=== PATIENT | female | born 1975 | race African-American/Black ===

== ENCOUNTER 2017-06-30 19:18 | Emergency (ER) | payer BC ==
--- NOTE | 2017-06-30 20:01 | ER Document Report ---
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 No antiplatelet medications, no anticoagulants. Yesterday took a 13 hour trip by car from [place] back up to here. Did not stop and get out very often to walk. Did not drink much fluids to avoid having to stop very often. Last night began having pain behind the left knee. Now feels left leg is swelling and tight and there is pain behind the knee and going up the medial thigh. Physical exam confirmed her complaints. The calf itself is not really tender. I have been told that venous Doppler techs are not here at this time. Will check d-dimer and if it is elevated that should be enough evidence to start treatment. I have greeted and performed a rapid initial assessment of this patient. A comprehensive ED assessment and evaluation of the patient, analysis of test results and completion of the medical decision making process will be conducted by additional ED providers. TRAVEL OUTSIDE OF THE [place] IN LAST 30 DAYS: No - Related Data Allergies/Adverse Reactions: No Known Allergies Allergy (Verified 06/26/16 13:36) Past Medical History - Social History Chew tobacco use (# tins/day): No Frequency of alcohol use: None Drug Abuse: None - Past Medical History Cardiac Medical History: Reports: Hx DVT - 2004 Renal/ Medical History: Denies: Hx Peritoneal Dialysis Past Surgical History: Reports: Hx Hysterectomy - Immunizations Hx Diphtheria, Pertussis, Tetanus Vaccination: Yes Physical Exam - Vital signs Vitals: Temp Pulse BP Pulse Ox 98.3 F 108 H 157/98 H 97 06/30/17 19:22 06/30/17 19:22 06/30/17 19:22 06/30/17 19:22 Course - Vital Signs Vital signs: Temp Pulse Resp BP Pulse Ox 98.3 F 108 H 18 157/98 H 97 06/30/17 19:22 06/30/17 19:22 06/30/17 19:23 06/30/17 19:22 06/30/17 19:22
[2017-06-30 20:32] LABS: ABSOLUTE EOSINOPHILS # (AUTO) 0.2 10^3/uL (0.0-0.6); ABSOLUTE LYMPHOCYTES (AUTO) 2.4 10^3/uL (0.5-4.7); ABSOLUTE MONOCYTES (AUTO) 0.5 10^3/uL (0.1-1.4); ABSOLUTE NEUT (AUTO) 4.8 10^3/uL (1.7-8.2); BASOPHILS % (AUTO) 0.3 % (0-2); EOSINOPHILS % (AUTO) 2.3 % (0-6); HEMATOCRIT 39.4 % (36.0-47.0); HEMOGLOBIN 13.1 g/dL (12.0-15.5); LYMPHOCYTES % (AUTO) 30.3 % (13-45); MEAN CORPUSCULAR HEMOGLOBIN 29.4 pg (27.0-33.4); MEAN CORPUSCULAR HGB CONC 33.2 g/dL (32.0-36.0); MEAN CORPUSCULAR VOLUME 89 fl (80-97); MONOCYTES % (AUTO) 6.8 % (3-13); PLATELET COUNT 288 10^3/uL (150-450); RED BLOOD COUNT 4.44 10^6/uL (3.72-5.28); RED CELL DISTRIBUTION WIDTH 14.6 % (11.5-14.0); SEGMENTED NEUTROPHILS % (AUTO) 60.3 % (42-78); TOTAL CELLS COUNTED % (AUTO) 100 %
[2017-06-30 20:37] LABS: INTERNATIONAL RATION (INR) 0.83; PROTHROMBIN TIME 12.1 SEC (11.4-15.4)
[2017-06-30 20:39] LABS: D-DIMER 0.61 ug/mL (0.00-0.50)
[2017-06-30 20:41] LABS: ALANINE AMINOTRANSFERASE 27 U/L (9-52); ALBUMIN 4.6 g/dL (3.5-5.0); ALKALINE PHOSPHATASE 105 U/L (38-126); ANION GAP 10 (5-19); ASPARTATE AMINO TRANSFERASE 24 U/L (14-36); BILIRUBIN,DIRECT 0.2 mg/dL (0.0-0.4); BILIRUBIN,TOTAL 0.3 mg/dL (0.2-1.3); BLOOD UREA NITROGEN 16 mg/dL (7-20); CALCIUM 10.3 mg/dL (8.4-10.2); CARBON DIOXIDE 26 mmol/L (22-30); CHLORIDE 105 mmol/L (98-107); GLUCOSE 74 mg/dL (75-110); POTASSIUM 4.1 mmol/L (3.6-5.0); SODIUM 141.2 mmol/L (137-145); TOTAL PROTEIN 7.9 g/dL (6.3-8.2)
--- NOTE | 2017-06-30 20:58 | RADIOLOGY REPORT (SQ) ---
EXAM DESCRIPTION: KNEE LEFT 3 VIEWS COMPLETED DATE/TIME: 06/30/2017 8:41 pm REASON FOR STUDY: knee pain COMPARISON: None. NUMBER OF VIEWS: Three views, AP as well as lateral and tangential patellofemoral. LIMITATIONS: None. FINDINGS: No subluxation or dislocation. Oberon view suggests subtle crack along the medial facet (versus artifact. No large joint effusion suggested. OTHER: No other significant finding. IMPRESSION: Potential subtle nondisplaced patellar fracture, depending on clinical presentation. Ev bright the patient have trauma recently? TECHNICAL DOCUMENTATION: JOB ID: [id number]
[2017-06-30] MEDS ORDERED: IBUPROFEN 600 MG TABLET PO ONE (22:13)
--- NOTE | 2017-06-30 22:18 | ER Document Report ---
ED General - General Chief Complaint: Knee Pain Stated Complaint: LEFT KNEE PAIN Time Seen by Provider: 06/30/17 19:52 Notes: Patient is a 41-year-old female with a past medical history of a DVT in the remote past who presents with 24 hours of left knee pain. She describes the pain in her knee as a gradual onset of a dull, constant, throbbing pain. Moving the knee or walking worsens the pain. She has not tried anything for relief of the pain. She denies a history of similar symptoms in the past. She denies any trauma to the area. She denies any additional symptoms including shortness of breath, fever, rash, or leg swelling. She has not seen her primary doctor regarding today's concerns. TRAVEL OUTSIDE OF THE [place] IN LAST 30 DAYS: No - Related Data Allergies/Adverse Reactions: No Known Allergies Allergy (Verified 06/26/16 13:36) Home Medications: Current Home Medications Acetaminophen/Dp-Hydramine [Goody's Pm Powder Packet] 1 pkt PO DAILY PRN [History] Aspirin/Acetaminophen/Caffeine [Excedrin Migraine Caplet] 1 each PO DAILY PRN [History] Cyclobenzaprine HCl [Flexeril 10 mg Tablet] 10 mg PO TIDP PRN 06/30/17 [History] Past Medical History - General Information source: Patient - Social History Smoking Status: Never Smoker Chew tobacco use (# tins/day): No Frequency of alcohol use: None Drug Abuse: None Lives with: Spouse/Significant other Family History: Reviewed & Not Pertinent, Other - Breast [place]--aunt, cousin Patient has suicidal ideation: No Patient has homicidal ideation: No - Past Medical History Cardiac Medical History: Reports: Hx DVT - 2004 Renal/ Medical History: Denies: Hx Peritoneal Dialysis Past Surgical History: Reports: Hx Hysterectomy - Immunizations Hx Diphtheria, Pertussis, Tetanus Vaccination: Yes Review of Systems - Review of Systems Notes: Constitutional: Negative for fever. HENT: Negative for sore throat. Eyes: Negative for visual changes. Cardiovascular: Negative for chest pain. Respiratory: Negative for shortness of breath. Gastrointestinal: Negative for abdominal pain, vomiting or diarrhea. Genitourinary: Negative for dysuria. Musculoskeletal: Positive for left knee pain Skin: Negative for rash. Neurological: Negative for headaches, weakness or numbness. 10 point ROS negative except as marked above and in HPI. Physical Exam - Vital signs Vitals: Temp Pulse BP Pulse Ox 98.3 F 108 H 157/98 H 97 06/30/17 19:22 06/30/17 19:22 06/30/17 19:22 06/30/17 19:22 Interpretation: Normal Notes: PHYSICAL EXAMINATION: GENERAL: Well-appearing, well-nourished and in no acute distress. HEAD: Atraumatic, normocephalic. EYES: Pupils equal round and reactive to light, extraocular movements intact, sclera anicteric, conjunctiva are normal. ENT: nares patent, oropharynx clear without exudates. Moist mucous membranes. NECK: Normal range of motion, supple without lymphadenopathy LUNGS: Breath sounds clear to auscultation bilaterally and equal. No wheezes rales or rhonchi. HEART: Regular rate and rhythm without murmurs ABDOMEN: Soft, nontender, normoactive bowel sounds. No guarding, no rebound. No masses appreciated. EXTREMITIES: Normal range of motion, mild swelling to the left knee. Point tenderness on palpation of the patella and the popliteal fossa. Otherwise no extremity findings NEUROLOGICAL: No focal neurological deficits. Moves all extremities spontaneously and on command. PSYCH: Normal mood, normal affect. SKIN: Warm, Dry, normal turgor, no rashes or lesions noted. Course - Re-evaluation Re-evalutation: 06/30/17 22:15 Patient presents with concerns of left knee pain and swelling for the past 24 hours. Initial concern was for possible DVT as she does have a history of past and had pain in the popliteal fossa. However a venous Doppler study does not show any evidence of an acute DVT or superficial clot. However a left knee x- ray does show very small patellar fracture. Although patient initially denied any kind of trauma, on repeat questioning she states that when she was driving up from [place] her accidentally hit her knee with his elbow when reaching into the back seat of the car. She states the pain was immediate but subsided so she did not think this was relevant on her initial presentation. Will place a knee immobilizer and recommend outpatient orthopedic follow-up. At this time will discharge with return precautions and follow-up recommendations. Verbal discharge instructions given a the bedside and opportunity for questions given. Medication warnings reviewed. Patient is in agreement with this plan and has verbalized understanding of return precautions and the need for primary care follow-up in the next 24-72 hours. - Vital Signs Vital signs: Temp Pulse Resp BP Pulse Ox 98.3 F 80 20 123/75 98 06/30/17 19:22 06/30/17 22:39 06/30/17 22:39 06/30/17 22:39 06/30/17 22:39 - Laboratory Result Diagrams: 06/30/17 20:10 06/30/17 20:10 Laboratory results interpreted by me: 06/30/17 06/30/17 06/30/17 20:10 20:10 20:10 RDW 14.6 H D-Dimer 0.61 H Glucose 74 L Calcium 10.3 H - Diagnostic Test Radiology reviewed: Image reviewed, Reports reviewed Radiology results interpreted by me: 06/30/17 22:18 Left knee: Small nondisplaced patellar fracture Discharge - Discharge Clinical Impression: Left patella fracture Qualifiers: Encounter type: initial encounter Fracture type: closed Fracture morphology: unspecified fracture morphology Fracture alignment: nondisplaced Qualified Code( s): S82.002A - Unspecified fracture of left patella, initial encounter for closed fracture Left knee pain Qualifiers: Chronicity: acute Qualified Code(s): M25.562 - Pain in left knee Condition: Good Disposition: HOME, SELF-CARE Additional Instructions: Your x-ray shows a small patellar fracture. This type of fracture almost never requires surgery or any specific management beyond follow-up with orthopedic surgery. You have been placed in an immobilizer which you can use for comfort. Return for any additional concerns you may have. The ultrasound was normal for any evidence of a clot in your leg. Referrals: DARYL MARSH MD [ACTIVE STAFF] - Follow up as needed
--- NOTE | 2017-06-30 22:23 | RADIOLOGY REPORT (SQ) ---
EXAM DESCRIPTION: VENOUS UNILATERAL LOWER COMPLETED DATE/TIME: 06/30/2017 10:11 pm REASON FOR STUDY: left leg pain, concnern dvt COMPARISON: None. TECHNIQUE: Dynamic and static ferguson scale and color images acquired of the left leg venous system. Se lected spectral images acquired with additional compression and augmentation maneuvers. The contralat eral common femoral vein and saphenofemoral junction were also imaged. Images stored on PACS. LIMITATIONS: None. FINDINGS: COMMON FEMORAL: Normal phasicity, compression and augmentation. No visualized echogenic ma terial on ferguson scale. No defects on color images. FEMORAL: Normal compression and augmentation. No visualized echogenic material on ferguson scale. No defe cts on color images. POPLITEAL: Normal compression, augmentation. No visualized echogenic material on ferguson scale. No defec ts on color images. CALF VESSELS: Normal compression, augmentation. No visualized echogenic material on ferguson scale. No de fects on color images. GSV and SSV: Normal compression, augmentation. No visualized echogenic material on ferguson scale. No def ects on color images. ANY DEEP VENOUS INSUFFICIENCY: Not evaluated. ANY EVIDENCE OF POPLITEAL CYST: No. OTHER: No other significant finding. CONTRALATERAL COMMON FEMORAL VEIN AND SAPHENOFEMORAL JUNCTION: Normal phasicity, compression and augmentation. No visualized echogenic material on ferguson scale. No de fects on color images. IMPRESSION: NO EVIDENCE DVT OR SVT IN THE LEFT LEG. TECHNICAL DOCUMENTATION: JOB ID: [id number]- All Rights Reserved
[2017-06-30 22:39] VITALS: BP 123/75
== END 2017-06-30 22:39 | disposition home or self-care (01) ==
LOC: ER 19:18
DX: S82.002A Unspecified fracture of left patella, initial encounter for closed fracture (principal); M25.562 Pain in left knee; W50.0XXA Accidental hit or strike by another person, initial encounter; Y93.89 Activity, other specified; Y92.810 Car as the place of occurrence of the external cause; Z86.718 Personal history of other venous thrombosis and embolism
CPT/HCPCS: 99284; 36415; 85025; 85610; 80053; 85379; 93971; 73562; L1830

== ENCOUNTER 2017-08-03 14:17 | Emergency (ER) | payer BC ==
--- NOTE | 2017-08-03 16:05 | ER Document Report ---
ED Medical Screen (RME) - General Chief Complaint: Leg Pain Stated Complaint: LEG PAIN Time Seen by Provider: 08/03/17 15:57 Mode of Arrival: Ambulatory - ON CRUTCHES Information source: Patient TRAVEL OUTSIDE OF THE [place] IN LAST 30 DAYS: No - HPI Onset: Yesterday Onset/Duration: Gradual Context: KNEE INJURY 5 WKS AGO. Quality of pain: Dull, Pressure Severity: Moderate Associated Symptoms: denies: Chest pain, Fever, Shortness of breath, Sweating Exacerbated by: Movement, Walking Relieved by: Remaining still Similar symptoms previously: No Recently seen / treated by doctor: No - Related Data Smoking: Non-smoker Frequency of alcohol use: None Drug Abuse: None Allergies/Adverse Reactions: No Known Allergies Allergy (Verified 08/03/17 15:51) Past Medical History - General Information source: Patient - Social History Cigarette use (# per day): No Chew tobacco use (# tins/day): No Frequency of alcohol use: None Drug Abuse: None Lives with: Family Family history: None - Past Medical History Cardiac Medical History: Reports: Hx DVT - 2005, Hx Pulmonary Embolism Pulmonary Medical History: Reports: None EENT Medical History: Reports: None Neurological Medical History: Reports: None Endocrine Medical History: Reports: None Renal/ Medical History: Reports: None. Denies: Hx Peritoneal Dialysis Malignancy Medical History: Reports: None GI Medical History: Reports: None Musculoskeltal Medical History: Reports None Psychiatric Medical History: Reports: None Past Surgical History: Reports: Hx Hysterectomy - Immunizations Hx Diphtheria, Pertussis, Tetanus Vaccination: Yes Review of Systems - Review of Systems Constitutional: No symptoms reported EENT: No symptoms reported Cardiovascular: No symptoms reported. denies: Heart racing, Dyspnea, Syncope, Dizziness, Lightheaded Respiratory: No symptoms reported. denies: Short of breath Gastrointestinal: No symptoms reported Female Genitourinary: No symptoms reported Musculoskeletal: See HPI Skin: No symptoms reported Neurological/Psychological: No symptoms reported. denies: Weakness, Lost consciousness Physical Exam - Vital signs Vitals: Temp Pulse Resp BP Pulse Ox 98.6 F 99 14 150/96 H 97 08/03/17 14:49 08/03/17 14:49 08/03/17 14:49 08/03/17 14:49 08/03/17 14:49 Interpretation: Hypertensive. No: Tachycardic, Hypoxic, Tachypneic - General General appearance: Appears well, Alert In distress: None - HEENT Head: Normocephalic Eyes: Normal Conjunctiva: Normal Ears: Normal Nasal: Normal Mouth/Lips: Normal Mucous membranes: Normal - Respiratory Respiratory status: No respiratory distress - Cardiovascular Rhythm: Regular - Extremities General upper extremity: Normal inspection General lower extremity: No: Normal inspection - L. CALF TENDER - Neurological Neuro grossly intact: Yes Cognition: Normal Orientation: AAOx4 - Psychological Associated symptoms: Normal affect, Normal mood - Skin Skin Temperature: Warm Skin Moisture: Dry Skin Color: Normal Skin Turgor: Elastic Course - Vital Signs Vital signs: Temp Pulse Resp BP Pulse Ox 98.6 F 99 14 150/96 H 97 08/03/17 14:49 08/03/17 14:49 08/03/17 14:49 08/03/17 14:49 08/03/17 14:49
[2017-08-03 16:28] LABS: ABSOLUTE EOSINOPHILS # (AUTO) 0.2 10^3/uL (0.0-0.6); ABSOLUTE LYMPHOCYTES (AUTO) 1.7 10^3/uL (0.5-4.7); ABSOLUTE MONOCYTES (AUTO) 0.4 10^3/uL (0.1-1.4); ABSOLUTE NEUT (AUTO) 4.3 10^3/uL (1.7-8.2); BASOPHILS % (AUTO) 0.4 % (0-2); EOSINOPHILS % (AUTO) 3.1 % (0-6); HEMATOCRIT 37.9 % (36.0-47.0); HEMOGLOBIN 12.5 g/dL (12.0-15.5); LYMPHOCYTES % (AUTO) 25.3 % (13-45); MEAN CORPUSCULAR HEMOGLOBIN 29.1 pg (27.0-33.4); MEAN CORPUSCULAR HGB CONC 33.1 g/dL (32.0-36.0); MEAN CORPUSCULAR VOLUME 88 fl (80-97); MONOCYTES % (AUTO) 5.9 % (3-13); PLATELET COUNT 272 10^3/uL (150-450); RED BLOOD COUNT 4.29 10^6/uL (3.72-5.28); RED CELL DISTRIBUTION WIDTH 14.4 % (11.5-14.0); SEGMENTED NEUTROPHILS % (AUTO) 65.3 % (42-78); TOTAL CELLS COUNTED % (AUTO) 100 %; WHITE BLOOD COUNT 6.6 10^3/uL (4.0-10.5)
[2017-08-03 16:32] LABS: INTERNATIONAL RATION (INR) 0.86; PROTHROMBIN TIME 12.4 SEC (11.4-15.4)
[2017-08-03 16:41] LABS: ALANINE AMINOTRANSFERASE 18 U/L (9-52); ALBUMIN 4.1 g/dL (3.5-5.0); ALKALINE PHOSPHATASE 99 U/L (38-126); ANION GAP 10 (5-19); ASPARTATE AMINO TRANSFERASE 20 U/L (14-36); BILIRUBIN,DIRECT 0.1 mg/dL (0.0-0.4); BILIRUBIN,TOTAL 0.2 mg/dL (0.2-1.3); BLOOD UREA NITROGEN 13 mg/dL (7-20); CALCIUM 9.7 mg/dL (8.4-10.2); CARBON DIOXIDE 26 mmol/L (22-30); CHLORIDE 107 mmol/L (98-107); GLUCOSE 86 mg/dL (75-110); POTASSIUM 4.3 mmol/L (3.6-5.0); SODIUM 142.5 mmol/L (137-145); TOTAL PROTEIN 7.4 g/dL (6.3-8.2)
[2017-08-03] MEDS ORDERED: ENOXAPARIN SODIUM INJ 100 MG/1 ML DISP.SYRIN SUBCUT ONE (17:53)
--- NOTE | 2017-08-03 18:22 | RADIOLOGY REPORT (SQ) ---
EXAM DESCRIPTION: VENOUS UNILATERAL LOWER COMPLETED DATE/TIME: 08/03/2017 6:14 pm REASON FOR STUDY: PAIN L. LEG, RECENT KNEE INJURY. COMPARISON: 06/30/2017 TECHNIQUE: Dynamic and static ferguson scale and color images acquired of the left leg venous system. Se lected spectral images acquired with additional compression and augmentation maneuvers. The contralat eral common femoral vein and saphenofemoral junction were also imaged. Images stored on PACS. LIMITATIONS: None. FINDINGS: LEFT COMMON FEMORAL: Normal phasicity, compression and augmentation. No visualized echogenic material on g ray scale. No defects on color images. FEMORAL: Normal compression and augmentation. No visualized echogenic material on ferguson scale. No defe cts on color images. POPLITEAL: Normal compression, augmentation. No visualized echogenic material on ferguson scale. No defec ts on color images. CALF VESSELS: Normal compression, augmentation. No visualized echogenic material on ferguson scale. No de fects on color images. GSV and SSV: Normal compression, augmentation. No visualized echogenic material on ferguson scale. No def ects on color images. ANY DEEP VENOUS INSUFFICIENCY: Not evaluated. ANY EVIDENCE OF POPLITEAL CYST: No. OTHER: THERE IS CLOT IN THE GASTROCNEMIUS VEIN IN THE LEFT MID CALF. RIGHT COMMON FEMORAL VEIN AND SAPHENOFEMORAL JUNCTION: Normal phasicity, compression and augmentation. No visualized echogenic material on ferguson scale. No de fects on color images. IMPRESSION: ACUTE CLOT IN THE GASTROCNEMIUS VEIN IN THE LEFT MID CALF. TECHNICAL DOCUMENTATION: JOB ID: [id number] [employer]- All Rights Reserved
[2017-08-03] MEDS ORDERED: OXYCODONE-ACETAMINOPHEN 5-325 MG TABLET PO ONE (19:10)
--- NOTE | 2017-08-03 19:15 | ER Document Report ---
ED General - General Chief Complaint: Leg Pain Stated Complaint: LEG PAIN Time Seen by Provider: 08/03/17 15:57 Mode of Arrival: Ambulatory - ON CRUTCHES Information source: Patient Notes: This is a 42-year-old female with a history of DVT in 2004 (in the setting of control pills for 1 month. She was treated at that time for 6 months on Coumadin). She does have a family history for DVT on her mother's side (her sister just of a pulmonary embolism in May). The patient was initially seen for left lower extremity pain in the beginning of the month and lower extremity Doppler showed no blood clot at that time. X-rays of the knee showed a possible small nondisplaced patella fracture and she was treated with immobilization and crutches. She presented with worsening calf pain. She denies any chest pain or shortness of breath. TRAVEL OUTSIDE OF THE [place] IN LAST 30 DAYS: No - HPI Onset: Last week Onset/Duration: Gradual Quality of pain: Dull Severity: Moderate Pain Level: 3 Associated symptoms: denies: Chest pain, Fever, Shortness of breath Exacerbated by: Denies Relieved by: Denies Similar symptoms previously: Yes Recently seen / treated by doctor: No - Related Data Allergies/Adverse Reactions: No Known Allergies Allergy (Verified 08/03/17 15:51) Past Medical History - General Information source: Patient - Social History Smoking Status: Never Smoker Cigarette use (# per day): No Chew tobacco use (# tins/day): No Frequency of alcohol use: None Drug Abuse: None Lives with: Family Family History: Reviewed & Not Pertinent, Other - Breast [place]--aunt, cousin Patient has suicidal ideation: No Patient has homicidal ideation: No - Past Medical History Cardiac Medical History: Reports: Hx DVT - 2004, Hx Pulmonary Embolism Pulmonary Medical History: Reports: None EENT Medical History: Reports: None Neurological Medical History: Reports: None Endocrine Medical History: Reports: None Renal/ Medical History: Reports: None. Denies: Hx Peritoneal Dialysis Malignancy Medical History: Reports: None GI Medical History: Reports: None Musculoskeltal Medical History: Reports None Psychiatric Medical History: Reports: None Past Surgical History: Reports: Hx Hysterectomy - Immunizations Hx Diphtheria, Pertussis, Tetanus Vaccination: Yes Review of Systems - Review of Systems Constitutional: denies: Chills, Fever EENT: No symptoms reported Cardiovascular: No symptoms reported Respiratory: No symptoms reported Gastrointestinal: No symptoms reported Genitourinary: No symptoms reported Female Genitourinary: No symptoms reported Musculoskeletal: See HPI Skin: No symptoms reported Hematologic/Lymphatic: No symptoms reported Neurological/Psychological: No symptoms reported Physical Exam - Vital signs Vitals: Temp Pulse Resp BP Pulse Ox 98.6 F 99 14 150/96 H 97 08/03/17 14:49 08/03/17 14:49 08/03/17 14:49 08/03/17 14:49 08/03/17 14:49 Notes: Physical exam: GENERAL: 42-year-old female, alert and oriented 3, no acute distress HEAD: Atraumatic, normocephalic. EYES: Pupils equal round and reactive to light, extraocular movements intact, sclera anicteric, conjunctiva are normal. ENT: TMs normal, nares patent, oropharynx clear without exudates. Moist mucous membranes. NECK: Normal range of motion, supple without obvious mass or JVD. LUNGS: Breath sounds clear to auscultation bilaterally and equal. No wheezes rales or rhonchi. HEART: Regular rate and rhythm without murmurs, rubs or gallops. ABDOMEN: Soft, normoactive bowel sounds. No tenderness to palpation. No guarding, no rebound. No masses appreciated. EXTREMITIES: Left calf pain and swelling. Pulses good. Distal cap refill good. Distal sensation good. NEUROLOGICAL: Cranial nerves II through XII grossly intact. Normal speech, moving all extremities. PSYCH: Normal mood, normal affect. SKIN: Warm, Dry, normal turgor, no rashes or lesions noted. Course - Re-evaluation Re-evalutation: 08/03/17 23:53 Patient does have a new left calf DVT. I have started the patient on Lovenox in the ER and will send her home with Xarelto. I discussed the case with Dr. Clifton parrish who will see the patient in clinic. She does have a significant family history of DVT and so this may mean that she is on lifelong anticoagulation. She has been using a knee immobilizer and that has contributed to her non-mobility and may play a role in the etiology of the blood clot as well. In any event, I will have her follow-up with Dr. Kline to specifically address how long she should receive anticoagulation. - Vital Signs Vital signs: Temp Pulse Resp BP Pulse Ox 98.8 F 83 16 148/93 H 98 08/03/17 19:17 08/03/17 19:17 08/03/17 19:17 08/03/17 19:17 08/03/17 19:17 - Laboratory Result Diagrams: 08/03/17 16:09 08/03/17 16:09 Laboratory results interpreted by me: 08/03/17 16:09 RDW 14.4 H - Diagnostic Test Radiology reviewed: Image reviewed, Reports reviewed - Extremity Doppler does show a left calf DVT. Discharge - Discharge Clinical Impression: DVT Condition: Stable Disposition: HOME, SELF-CARE Instructions: DVT Outpatient Treatment ([facility]) Additional Instructions: Recommendations: Xarelto was the blood thinner. Take 15 mg twice daily for 21 days. After 21 days, it is 15 mg once daily. I want you to call Dr. Clifton anderson's office tomorrow (he is the forklift truck operator/ oncologist). Tell the hospital receptionist that the ER doctor had spoken with Dr. Montez anderson who wanted you seen in the office this week. Take Percocet for pain. Return to the emergency room for any chest pain, shortness of breath or any worsening pain or concerns or getting worse. The pain medicine you're taking prescribed as a narcotic. There are several important things you should know about this medicine: 1. This medicine contains Tylenol: It is important that you do not take Tylenol (or acetaminophen) while on this medicine. Tylenol is metabolized by the liver and taking too much Tylenol (acetaminophen) can lay to liver damage and even liver failure. 2. Taking narcotics for too long can lead to physical and mental dependence. Take this medicine only if really needed and in the lowest quantity to achieve pain relief. 3. Do not drink alcohol while on this medicine. Alcohol interacts with narcotics and the combination can be dangerous. 4. Do not drive or operate machinery while on this medicine. 5. Narcotics do cause constipation, so drink plenty of fluids and daily stool softeners. Prescriptions: Oxycodone HCl/Acetaminophen [Percocet 5-325 mg Tablet] 1 - 2 tab PO ASDIR PRN # 25 tablet PRN Reason: Rivaroxaban [Xarelto 15 mg Tablet] 15 mg PO BID #60 tablet Forms: Return to Work Referrals: HIPOLITO PALAFOX MD [ACTIVE STAFF] - Follow up as needed (This is the number for the blood doctor: Call tomorrow for appointment in the next few days.)
[2017-08-03 19:19] VITALS: BP 148/93
== END 2017-08-03 19:34 | disposition home or self-care (01) ==
LOC: ER 14:17
DX: I82.4Z2 Acute embolism and thrombosis of unspecified deep veins of left distal lower extremity (principal); M79.605 Pain in left leg; S82.002D Unspecified fracture of left patella, subsequent encounter for closed fracture with routine healing; X58.XXXD Exposure to other specified factors, subsequent encounter
CPT/HCPCS: 99284; 96372; 36415; 85025; 85610; 80053; 93971; J1650

== ENCOUNTER 2017-08-04 23:44 | Emergency (ER) | payer BC ==
--- NOTE | 2017-08-05 02:03 | ER Document Report ---
ED Medical Screen (RME) - General Chief Complaint: Chest Pressure Stated Complaint: CHEST PRESSURE Time Seen by Provider: 08/05/17 01:55 Mode of Arrival: Wheelchair Information source: Patient Notes: 42-year-old female presents to ED for chest heaviness that started 2320. She states that she was seen last night and diagnosed with a DVT in her left leg which also has a fracture to the left knee. She states she was supposed to be wearing a splint but they took it off due to the DVT. She states she was started on Xarelto last night. She states the pressure is not getting any better. Lungs clear to auscultation respirations regular and unlabored at this time pulse is over 100. I have greeted and performed a rapid initial assessment of this patient. A comprehensive ED assessment and evaluation of the patient, analysis of test results and completion of medical decision making process will be conducted by an additional ED providers. TRAVEL OUTSIDE OF THE [place] IN LAST 30 DAYS: No - Related Data Allergies/Adverse Reactions: No Known Allergies Allergy (Verified 08/03/17 15:51) Past Medical History - Social History Family history: None - Past Medical History Cardiac Medical History: Reports: Hx DVT - 2004, Hx Pulmonary Embolism Renal/ Medical History: Denies: Hx Peritoneal Dialysis Past Surgical History: Reports: Hx Hysterectomy - Immunizations Hx Diphtheria, Pertussis, Tetanus Vaccination: Yes
[2017-08-05 02:30] LABS: ABSOLUTE BASOPHILS # (AUTO) 0.1 10^3/uL (0.0-0.2); ABSOLUTE EOSINOPHILS # (AUTO) 0.2 10^3/uL (0.0-0.6); ABSOLUTE LYMPHOCYTES (AUTO) 1.6 10^3/uL (0.5-4.7); ABSOLUTE MONOCYTES (AUTO) 0.5 10^3/uL (0.1-1.4); ABSOLUTE NEUT (AUTO) 5.8 10^3/uL (1.7-8.2); BASOPHILS % (AUTO) 0.8 % (0-2); EOSINOPHILS % (AUTO) 2.3 % (0-6); HEMATOCRIT 37.1 % (36.0-47.0); HEMOGLOBIN 12.3 g/dL (12.0-15.5); LYMPHOCYTES % (AUTO) 19.7 % (13-45); MEAN CORPUSCULAR HEMOGLOBIN 29.3 pg (27.0-33.4); MEAN CORPUSCULAR VOLUME 89 fl (80-97); MONOCYTES % (AUTO) 5.7 % (3-13); PLATELET COUNT 290 10^3/uL (150-450); RED BLOOD COUNT 4.18 10^6/uL (3.72-5.28); RED CELL DISTRIBUTION WIDTH 14.1 % (11.5-14.0); SEGMENTED NEUTROPHILS % (AUTO) 71.5 % (42-78); TOTAL CELLS COUNTED % (AUTO) 100 %; WHITE BLOOD COUNT 8.1 10^3/uL (4.0-10.5)
[2017-08-05 02:31] LABS: INTERNATIONAL RATION (INR) 1.46; PROTHROMBIN TIME 18.6 SEC (11.4-15.4)
[2017-08-05 02:32] LABS: PARTIAL THROMBOPLASTIN TIME 38.8 SEC (23.5-35.8)
[2017-08-05 03:11] LABS: ALANINE AMINOTRANSFERASE < 6 U/L (9-52); ALBUMIN 4.3 g/dL (3.5-5.0); ALKALINE PHOSPHATASE 106 U/L (38-126); ANION GAP 7 (5-19); ASPARTATE AMINO TRANSFERASE 76 U/L (14-36); BILIRUBIN,DIRECT 0.7 mg/dL (0.0-0.4); BILIRUBIN,TOTAL 0.7 mg/dL (0.2-1.3); BLOOD UREA NITROGEN 14 mg/dL (7-20); CALCIUM 9.7 mg/dL (8.4-10.2); CARBON DIOXIDE 27 mmol/L (22-30); CHLORIDE 108 mmol/L (98-107); CREATINE KINASE 141 U/L (30-135); GLUCOSE 101 mg/dL (75-110); POTASSIUM 4.4 mmol/L (3.6-5.0); SODIUM 141.8 mmol/L (137-145); TOTAL PROTEIN 7.7 g/dL (6.3-8.2)
[2017-08-05 03:41] LABS: CREATINE KINASE MB 0.68 ng/mL (<4.55)
[2017-08-05 03:43] LABS: TROPONIN I < 0.012 ng/mL
--- NOTE | 2017-08-05 04:04 | RADIOLOGY REPORT (SQ) ---
EXAM DESCRIPTION: CTA of the chest per PE protocol with contrast. CLINICAL HISTORY: dx dvt last night, chest heaviness and short of br COMPARISON: None Available. TECHNIQUE: CTA of the chest obtained following the uncomplicated intravenous administration of 100 mL Isovue-370. 3-D/MIP reformatted images of the chest available for evaluation. FINDINGS: Chest: Mediastinal windows demonstrate an adequate contrast bolus. No pulmonary embolus identified. Evaluation of the subsegmental and segmental pulmonary arterial branches is suboptimal due to contrast bolus timing. Visualized thyroid gland is unremarkable. Great vessels have normal anatomic configuration. No cardiomegaly, coronary artery atherosclerosis, or pericardial effusion. No abnormalities of the esophagus. Scattered mediastinal lymph nodes are not enlarged by CT criteria. Lung windows demonstrate no consolidation, pneumothorax, or pleural effusion. No abnormalities of the visualized trachea or airways. Limited images of the upper abdomen demonstrate no abnormalities of the visualized liver, spleen, pancreas, adrenal glands, gallbladder, or kidneys. No destructive osseous lesions. Degenerative change of the spine. DLP: 646.66 mGycm IMPRESSION: 1. No pulmonary embolus identified. Suboptimal evaluation of the segmental and subsegmental pulmonary arterial branches due to contrast bolus timing. This exam was performed according to our departmental dose-optimization program, which includes automated exposure control, adjustment of the mA and/or kV according to patient size and/or use of iterative reconstruction technique.
[2017-08-05] MEDS ORDERED: OXYCODONE-ACETAMINOPHEN 5-325 MG TABLET PO ONE (06:39)
--- NOTE | 2017-08-05 07:46 | ER Document Report ---
ED General - General Chief Complaint: Chest Pressure Stated Complaint: CHEST PRESSURE Time Seen by Provider: 08/05/17 01:55 Mode of Arrival: Wheelchair TRAVEL OUTSIDE OF THE [place] IN LAST 30 DAYS: No - HPI Patient complains to provider of: Chest pressure Notes: Patient was recently diagnosed with a DVT. Patient had a fracture of her patella has been on for 2 weeks ultrasound showing DVT and was placed on Xarelto. Patient started having chest pressureWith a sharp pain left chest 1: 00 last night. Patient states pressure has resolved. Patient states pressure was in the upper part of her chest. Patient states intermittent sharp pain is reproducible to touch at the left sternal border. Patient states she does have a mass in her left breast. Patient denies any other recent travel denies any fevers chills nausea vomiting diarrhea. Patient was recently started on Xarelto states that she is compliant with this. Patient denies any issues with bleeding. Patient resting comfortably upon my evaluation. - Related Data Allergies/Adverse Reactions: No Known Allergies Allergy (Verified 08/03/17 15:51) Past Medical History - General Information source: Patient - Social History Smoking Status: Never Smoker Chew tobacco use (# tins/day): No Frequency of alcohol use: Social Drug Abuse: None Family History: Reviewed & Not Pertinent, Other - Breast CA--aunt, cousin Patient has suicidal ideation: No Patient has homicidal ideation: No - Past Medical History Cardiac Medical History: Reports: Hx DVT - 2004, Hx Pulmonary Embolism Renal/ Medical History: Denies: Hx Peritoneal Dialysis Past Surgical History: Reports: Hx Hysterectomy - Immunizations Hx Diphtheria, Pertussis, Tetanus Vaccination: Yes Review of Systems - Review of Systems Constitutional: No symptoms reported EENT: No symptoms reported Cardiovascular: Chest pain Respiratory: No symptoms reported Gastrointestinal: No symptoms reported Genitourinary: No symptoms reported Female Genitourinary: No symptoms reported Musculoskeletal: No symptoms reported Skin: No symptoms reported Hematologic/Lymphatic: No symptoms reported Neurological/Psychological: No symptoms reported -: Yes All other systems reviewed and negative Physical Exam - Vital signs Vitals: Temp Pulse Resp BP Pulse Ox 98.7 F 107 H 20 150/95 H 97 08/05/17 00:01 08/05/17 00:01 08/05/17 00:01 08/05/17 00:01 08/05/17 00:01 Interpretation: Normal - General General appearance: Appears well, Alert - HEENT Head: Normocephalic, Atraumatic Eyes: Normal Pupils: PERRL - Respiratory Respiratory status: No respiratory distress Chest status: Nontender Breath sounds: Normal Chest palpation: Normal - Cardiovascular Rhythm: Regular Heart sounds: Normal auscultation Murmur: No - Abdominal Inspection: Normal Distension: No distension Bowel sounds: Normal Tenderness: Nontender Organomegaly: No organomegaly - Back Back: Normal, Nontender - Extremities General upper extremity: Normal inspection, Nontender, Normal color, Normal ROM , Normal temperature General lower extremity: Normal inspection, Normal color - Neurological Neuro grossly intact: Yes Cognition: Normal Orientation: AAOx4 [place] Coma Scale Eye Opening: Spontaneous [place] Coma Scale Verbal: Oriented Mikayla Coma Scale Motor: Obeys Commands [place] Coma Scale Total: 15 Speech: Normal Motor strength normal: LUE, RUE, LLE, RLE Sensory: Normal - Psychological Associated symptoms: Normal affect, Normal mood - Skin Skin Temperature: Warm Skin Moisture: Dry Skin Color: Normal Course - Re-evaluation Re-evalutation: 08/05/17 07:45 CT negative for any large PE. Patient's troponins are negative 2. EKG does not show any acute pathology. Patient will be encouraged follow-up with your primary care physician continue her Xarelto. Recommend Tylenol for pain control. - Vital Signs Vital signs: Temp Pulse Resp BP Pulse Ox 98.7 F 107 H 17 147/93 H 100 08/05/17 00:01 08/05/17 00:01 08/05/17 07:01 08/05/17 07:01 08/05/17 07:01 - Laboratory Result Diagrams: 08/05/17 02:10 08/05/17 02:10 Laboratory results interpreted by me: 08/05/17 08/05/17 08/05/17 02:10 02:10 02:10 RDW 14.1 H PT 18.6 H APTT 38.8 H Chloride 108 H Direct Bilirubin 0.7 H AST 76 H ALT < 6 L Creatine Kinase 141 H Discharge - Discharge Clinical Impression: Chest pressure, History of DVT (deep vein thrombosis) Condition: Good Disposition: HOME, SELF-CARE Instructions: Chest Pain of Unclear Cause ([facility]), Chest Wall Pain ([facility]) Additional Instructions: Laboratory studies today do not show any signs of cardiac ischemia. Your EKG also does not show any signs of heart attack. Your CT scan does not show any signs of blood clots within your lungs. Please follow-up with your primary care physician. He is very important that she continue on your Xarelto. Return to the ER for any concerns. I would recommend taking [id number] Zantac or Prilosec if the pressure continues.he may also take Tylenol for pain control. Forms: Return to Work
[2017-08-05 07:52] VITALS: BP 128/79
--- NOTE | 2017-08-05 08:35 | EKG REPORT ---
SEVERITY:- OTHERWISE NORMAL ECG - SINUS TACHYCARDIA : Confirmed by: Lucero Keen 05-Aug-2017 08:34:24
== END 2017-08-05 08:05 | disposition home or self-care (01) ==
LOC: ER 23:44
DX: R07.9 Chest pain, unspecified (principal); N64.4 Mastodynia; Z86.718 Personal history of other venous thrombosis and embolism; Z79.02 Long term (current) use of antithrombotics/antiplatelets; Z86.711 Personal history of pulmonary embolism; Z90.710 Acquired absence of both cervix and uterus
CPT/HCPCS: 36415; 71275; 80053; 82550; 82553; 84484; 84703; 85025; 85610; 85730; 93005; 93010; 99285

== ENCOUNTER 2017-08-09 10:12 | Emergency (ER) | payer BC ==
--- NOTE | 2017-08-09 10:31 | ER Document Report ---
ED Medical Screen (RME) - General Chief Complaint: Leg Pain Stated Complaint: KNEE PAIN Time Seen by Provider: 08/09/17 10:29 Mode of Arrival: Wheelchair Information source: Patient TRAVEL OUTSIDE OF THE [place] IN LAST 30 DAYS: No - HPI Patient complains to provider of: L leg pain Onset: Yesterday - pt with h/o fx patella L knee - now with R leg pain and L - sided back pain on inspiration - Related Data Allergies/Adverse Reactions: No Known Allergies Allergy (Verified 08/09/17 10:14) Past Medical History - Social History Chew tobacco use (# tins/day): No Frequency of alcohol use: None Drug Abuse: None Family history: None - Past Medical History Cardiac Medical History: Reports: Hx DVT - 2004, Hx Pulmonary Embolism Renal/ Medical History: Denies: Hx Peritoneal Dialysis Past Surgical History: Reports: Hx Hysterectomy - Immunizations Hx Diphtheria, Pertussis, Tetanus Vaccination: Yes Physical Exam - Vital signs Vitals: Temp Pulse Resp BP Pulse Ox 98.2 F 96 16 155/97 H 100 08/09/17 10:16 08/09/17 10:16 08/09/17 10:16 08/09/17 10:16 08/09/17 10:16 Course - Vital Signs Vital signs: Temp Pulse Resp BP Pulse Ox 98.2 F 96 16 155/97 H 100 08/09/17 10:16 08/09/17 10:16 08/09/17 10:16 08/09/17 10:16 08/09/17 10:16
--- NOTE | 2017-08-09 11:03 | ER Document Report ---
ED General - General Chief Complaint: Leg Pain Stated Complaint: KNEE PAIN Time Seen by Provider: 08/09/17 10:29 Mode of Arrival: Wheelchair Information source: Patient Notes: Patient presents emergency department with complaints of right posterior knee pain and back pain when she takes a deep breath since yesterday. Reports history of recent patella fracture in June to left knee. Reports she had a DVT August 03 and treated with Xarelto since July. Patient reports she has been taking 15 mg of Xarelto twice daily. She denies vomiting diarrhea fever. Reports history of DVT. Also reports family history of DVTs. TRAVEL OUTSIDE OF THE [place] IN LAST 30 DAYS: No - HPI Onset: Yesterday Onset/Duration: Persistent Severity: Moderate Pain Level: 3 Associated symptoms: None Exacerbated by: Deep breathing Relieved by: Denies Similar symptoms previously: Yes Recently seen / treated by doctor: Yes - Related Data Allergies/Adverse Reactions: No Known Allergies Allergy (Verified 08/09/17 10:14) Past Medical History - General Information source: Patient Last Menstrual Period: 2004 - Social History Smoking Status: Never Smoker Chew tobacco use (# tins/day): No Frequency of alcohol use: None Drug Abuse: None Lives with: Family Family History: Other - Breast CA--aunt, cousin sister with DVT Patient has suicidal ideation: No Patient has homicidal ideation: No - Past Medical History Cardiac Medical History: Reports: Hx DVT - 2004, Hx Pulmonary Embolism Renal/ Medical History: Denies: Hx Peritoneal Dialysis Past Surgical History: Reports: Hx Hysterectomy - Immunizations Hx Diphtheria, Pertussis, Tetanus Vaccination: Yes Review of Systems - Review of Systems Notes: Review HPI for review of systems., All other systems negative Physical Exam - Vital signs Vitals: Temp Pulse Resp BP Pulse Ox 98.2 F 96 16 155/97 H 100 08/09/17 10:16 08/09/17 10:16 08/09/17 10:16 08/09/17 10:16 08/09/17 10:16 - Notes Notes: PHYSICAL EXAMINATION: GENERAL: Well-appearing and in no acute distress HEAD: Atraumatic, normocephalic. EYES: Pupils equal round and reactive to light, extraocular movements intact, sclera anicteric, conjunctiva are normal. ENT: nares patent, oropharynx clear without exudates. Moist mucous membranes. NECK: Normal range of motion, supple without lymphadenopathy LUNGS: CTAB and equal. No wheezes rales or rhonchi. HEART: Regular rate and rhythm without murmurs ABDOMEN: Soft, no tenderness. No guarding, no rebound EXTREMITIES: Normal range of motion, no pitting edema. No cyanosis. NEG HOMANS, NO ERYTHEMA/WARMTH/SWELLING, GOOD PEDAL PULSE NEUROLOGICAL: Cranial nerves grossly intact. Normal sensory/motor exams. PSYCH: Normal mood, normal affect. SKIN: Warm, Dry, normal turgor, no rashes or lesions noted Course - Re-evaluation Re-evalutation: 08/09/17 12:05 D-dimer 1.11. No obvious shortness of breath. I am worried about failure treatment with the Xarelto will complete CTA and repeat Doppler. PT DECLINES PAIN MEDICATION 08/09/17 14:47 Dr. Case on the phone reports negative DVT. CTA negative for PE. Patient instructed on neg CTA, Neg doppler. Patient requesting PEPPER hose. Patient instructed to fu with pcp, continue xarelto. - Vital Signs Vital signs: Temp Pulse Resp BP Pulse Ox 98.2 F 96 6 L 146/94 H 99 08/09/17 10:16 08/09/17 10:16 08/09/17 14:02 08/09/17 14:02 08/09/17 14:02 - Laboratory Result Diagrams: 08/09/17 10:41 08/09/17 10:41 Laboratory results interpreted by me: 08/09/17 08/09/17 10:41 10:41 RDW 14.3 H D-Dimer 1.11 H - Diagnostic Test Radiology reviewed: Image reviewed, Reports reviewed - Doppler negative for DVT per tech, cta neg for PE, Interpretation Summary No duplex evidence of DVT or obstruction in the right lower extremity nor in the left Common Femoral vein. IMPRESSION: NORMAL CTA OF THE CHEST. NO PULMONARY EMBOLI Discharge - Discharge Clinical Impression: right lower extremity pain, pain with deep breathing Condition: Stable Disposition: HOME, SELF-CARE Additional Instructions: *You have been evaluated for right lower leg pain, pain with deep breath *Your CTA and doppler were negative *Follow up with your primary care provider within one week *Continue to take medication as prescribed *Return to ED for worsening condition, changes, needs Monitor your blood pressure. Your blood pressure was elevated today. This may be because you were anxious, in pain or because you need medication. It is important to follow up with your primary care provider for full evaluation. Forms: Elevated Blood Pressure
[2017-08-09 11:22] LABS: ABSOLUTE EOSINOPHILS # (AUTO) 0.1 10^3/uL (0.0-0.6); ABSOLUTE LYMPHOCYTES (AUTO) 1.2 10^3/uL (0.5-4.7); ABSOLUTE MONOCYTES (AUTO) 0.3 10^3/uL (0.1-1.4); ABSOLUTE NEUT (AUTO) 4.8 10^3/uL (1.7-8.2); BASOPHILS % (AUTO) 0.3 % (0-2); EOSINOPHILS % (AUTO) 2.2 % (0-6); HEMATOCRIT 38.3 % (36.0-47.0); HEMOGLOBIN 12.4 g/dL (12.0-15.5); LYMPHOCYTES % (AUTO) 19.1 % (13-45); MEAN CORPUSCULAR HGB CONC 32.5 g/dL (32.0-36.0); MEAN CORPUSCULAR VOLUME 89 fl (80-97); MONOCYTES % (AUTO) 4.2 % (3-13); PLATELET COUNT 261 10^3/uL (150-450); RED CELL DISTRIBUTION WIDTH 14.3 % (11.5-14.0); SEGMENTED NEUTROPHILS % (AUTO) 74.2 % (42-78); TOTAL CELLS COUNTED % (AUTO) 100 %; WHITE BLOOD COUNT 6.5 10^3/uL (4.0-10.5)
[2017-08-09 11:42] LABS: ALANINE AMINOTRANSFERASE 20 U/L (9-52); ALKALINE PHOSPHATASE 95 U/L (38-126); ANION GAP 8 (5-19); ASPARTATE AMINO TRANSFERASE 20 U/L (14-36); BILIRUBIN,DIRECT 0.4 mg/dL (0.0-0.4); BILIRUBIN,TOTAL 0.4 mg/dL (0.2-1.3); BLOOD UREA NITROGEN 9 mg/dL (7-20); CALCIUM 9.8 mg/dL (8.4-10.2); CARBON DIOXIDE 26 mmol/L (22-30); CHLORIDE 105 mmol/L (98-107); GLUCOSE 103 mg/dL (75-110); POTASSIUM 4.1 mmol/L (3.6-5.0); SODIUM 139.1 mmol/L (137-145); TOTAL PROTEIN 7.3 g/dL (6.3-8.2)
[2017-08-09 12:28] LABS: APPEARANCE,URINE CLEAR; BILIRUBIN,URINE NEGATIVE (NEGATIVE); COLOR,URINE STRAW; GLUCOSE, URINE NEGATIVE (NEGATIVE); KETONES,URINE NEGATIVE (NEGATIVE); LEUKOCYTE ESTERASE,URINE NEGATIVE (NEGATIVE); NITRITE,URINE NEGATIVE (NEGATIVE); PROTEIN,URINE NEGATIVE (NEGATIVE); URINE SPECIFIC GRAVITY 1.005; UROBILINOGEN,URINE NEGATIVE mg/dL (<2.0)
--- NOTE | 2017-08-09 13:11 | RADIOLOGY REPORT (SQ) ---
EXAM DESCRIPTION: CTA CHEST COMPLETED DATE/TIME: 08/09/2017 12:46 pm REASON FOR STUDY: pain with deep breath, hx dvt, elev. ddimer COMPARISON: 08/05/2017. TECHNIQUE: CT scan of the chest performed using helical scanning technique with dynamic intravenous contrast injection. Images reviewed with lung, soft tissue and bone windows. Reconstructed coronal and sagittal MPR images reviewed. Additional 3 dimensional post-processing performed to develop Maximal Intensity Projection images (IA P). All images stored on PACS. All CT scanners at this facility use dose modulation, iterative reconstruction, and/or weight based d osing when appropriate to reduce radiation dose to as low as reasonably achievable (ALARA). [facility]: Dose Right [facility]: CareDose [facility]: Dose Right [facility]: Teradose 4D [facility]: Biocontrol CONTRAST TYPE AND DOSE: contrast/concentration: Isovue 370.00 mg/ml; Total Contrast Delivered: 82.0 ml; Total Saline Delivered: 80.0 ml Contrast bolus adequate for pulmonary arteries and aorta. RENAL FUNCTION: BUN 9 creatinine 0.74. RADIATION DOSE: CT Rad equipment meets quality standard of care and radiation dose reduction techniq ues were employed. CTDIvol: 3.3 - 39.7 mGy. DLP: 651 mGy-cm. . LIMITATIONS: None. FINDINGS: LUNGS AND PLEURA: No masses, infiltrates, pneumothorax. No pleural effusions, calcificati ons. AORTA AND GREAT VESSELS: No aneurysm. No dissection. HEART: No pericardial effusion. No significant coronary artery calcifications. PULMONARY ARTERIES: No emboli visualized in the main pulmonary arteries or the segmental branches. HILAR AND MEDIASTINAL STRUCTURES: No identified masses or abnormal nodes. HARDWARE: None in the chest. UPPER ABDOMEN: No significant findings. Limited exam. THYROID AND OTHER SOFT TISSUES: No masses. No adenopathy. BONES: No acute or significant finding. 3D MIPS: Confirm above findings. OTHER: No other significant finding. IMPRESSION: NORMAL CTA OF THE CHEST. NO PULMONARY EMBOLI. COMMENT: Quality ID # [id number]: Final reports with documentation of one or more dose reduction techniques (e.g., Automated exposure control, adjustment of the mA and/or kV according to patient size, use of iterative reconstruction technique) TECHNICAL DOCUMENTATION: JOB ID: [id number] [employer]- All Rights Reserved
[2017-08-09 15:00] VITALS: BP 146/94
--- NOTE | 2017-08-09 16:54 | XCELERA REPORT ---
[address] [address] Lower Extremity Venous Evaluation Name: CONSUELO MAN Age: 42 yrs Gender: Female : 1975 Patient Status: Emergency Patient Location: ER Study Date: 08/09/2017 01:13 PM Procedure: Color flow and duplex imaging of the veins of the right lower extremity as well as the left Common Femoral vein. Reason For Study: hx dvt, pain back right knee Ordering Physician: DEJUAN SOLANO Performed By: Rebekah Floyd Right Sided Venous Evaluation Normal vessel filling wall to wall, compression and augmentation as well as Colour flow down to the infrageniculate veins. Left Sided Venous Evaluation The left common femoral vein is fully compressible. Spontaneous and phasic flow is present in the left common femoral vein. Interpretation Summary No duplex evidence of DVT or obstruction in the right lower extremity nor in the left Common Femoral vein. : DEJUAN SOLANO [place]
== END 2017-08-09 15:07 | disposition home or self-care (01) ==
LOC: ER 10:12
DX: M79.604 Pain in right leg (principal); R07.1 Chest pain on breathing; M25.561 Pain in right knee; M54.9 Dorsalgia, unspecified; Z79.01 Long term (current) use of anticoagulants; Z86.711 Personal history of pulmonary embolism; Z87.828 Personal history of other (healed) physical injury and trauma
CPT/HCPCS: 36415; 71275; 80053; 81001; 85025; 85379; 93971; 99284

== ENCOUNTER 2017-08-28 22:55 | Emergency (ER) | payer BC ==
[2017-08-29] MEDS ORDERED: ONDANSETRON HCL INJ/PF 4 MG/2 ML SDV IV ONE (00:06)
[2017-08-29] MEDS ORDERED: PROCHLORPERAZINE EDISYLATE INJ 10 MG/2 ML VIAL IV ONE (00:06)
[2017-08-29] MEDS ORDERED: DIPHENHYDRAMINE HCL 50 MG/ML VIAL IV ONE ×2 (00:06→01:58)
--- NOTE | 2017-08-29 00:06 | ER Document Report ---
ED Headache - General Mode of Arrival: Ambulatory Information source: Patient TRAVEL OUTSIDE OF THE [place] IN LAST 30 DAYS: No - HPI Patient complains to provider of: Headache Patient reports: Other - see notes above Associated symptoms: Other - see notes above <BEHZAD KING - Last Filed: 08/29/17 00:39> <JUAN FRANCISCO HOOPER - Last Filed: 08/29/17 03:30> - General Chief Complaint: Headache Stated Complaint: FACIAL PRESSURE Time Seen by Provider: 08/28/17 23:45 Notes: 42 year old female with history of hypertension and chronic left sided sinus headaches presents to the ED complaining of right religious head pressure that radiates behind her right eye. Patient reports that she feels like something is in her right eye. Patient is recovering from a DVT and has been on Xarelto since 07/03/2017. Patient reports taking her HCTZ medication prior to the pressure starting. Patient denies nausea, vision changes, or tingling. (BEHZAD KING) - Related Data Allergies/Adverse Reactions: No Known Allergies Allergy (Verified 08/09/17 10:14) Past Medical History - General Information source: Patient - Social History Smoking Status: Unknown if Ever Smoked Family History: Other - Breast CA--aunt, cousin sister with DVT - Past Medical History Cardiac Medical History: Reports: Hx DVT - 2017, Hx Pulmonary Embolism Renal/ Medical History: Denies: Hx Peritoneal Dialysis Past Surgical History: Reports: Hx Hysterectomy - Immunizations Hx Diphtheria, Pertussis, Tetanus Vaccination: Yes <BEHZAD KING - Last Filed: 08/29/17 00:39> Review of Systems - Review of Systems Constitutional: No symptoms reported EENT: No symptoms reported. denies: Blurred vision, Double vision Cardiovascular: No symptoms reported Respiratory: No symptoms reported Gastrointestinal: No symptoms reported. denies: Nausea Genitourinary: No symptoms reported Female Genitourinary: No symptoms reported Musculoskeletal: No symptoms reported Skin: No symptoms reported Hematologic/Lymphatic: No symptoms reported Neurological/Psychological: See HPI, Headaches - pressure to the right religious and behind right eye. denies: Tingling -: Yes All other systems reviewed and negative <BEHZAD KING - Last Filed: 08/29/17 00:39> Physical Exam - Vital signs Interpretation: Hypertensive - General General appearance: Alert In distress: None - HEENT Head: Normocephalic, Atraumatic Eyes: Normal Extraocular movements intact: Yes Pupils: PERRL - Respiratory Respiratory status: No respiratory distress Breath sounds: Normal - Cardiovascular Rhythm: Regular Heart sounds: Normal auscultation - Abdominal Inspection: Normal - Back Back: Normal - Extremities General upper extremity: Normal inspection, Normal ROM General lower extremity: Normal inspection, Normal ROM - Neurological Neuro grossly intact: Yes - Psychological Associated symptoms: Normal affect, Normal mood - Skin Skin Temperature: Warm Skin Moisture: Dry Skin Color: Normal <BEHZAD KING - Last Filed: 08/29/17 00:39> - Vital signs Vitals: Temp Pulse Resp BP Pulse Ox 97.9 F 84 18 165/104 H 100 08/28/17 23:04 08/28/17 23:04 08/28/17 23:04 08/28/17 23:04 08/28/17 23:04 Course <BEHZAD KING - Last Filed: 08/29/17 00:39> - Laboratory Result Diagrams: 08/29/17 00:30 08/29/17 00:30 - Diagnostic Test Radiology reviewed: Reports reviewed <JUAN FRANCISCO HOOPER - Last Filed: 08/29/17 03:30> - Re-evaluation Re-evalutation: 08/29/17 02:28 Patient is a 42-year-old female who comes in complaining of right-sided headache. Patient was recently started on anticoagulation for DVT. Patient states that she does get headaches often. No acute findings on CT brain. She does have some maxillary sinusitis on the right which could help explain symptoms. Blood work within normal limits. Patient has had resolution of her headache with medications. Patient does have headaches often. Patient also with allergy symptoms. Discussed that the patient is not to take ibuprofen or aspirin while she is on a blood thinner. Patient is recommended to not take Sudafed due to her high blood pressure. She can take [id number] antihistamine such as Zyrtec and also Benadryl at night. Patient is instructed to follow-up with her primary care doctor and also neurology if she is continuing to have headaches. Appears well otherwise. Stable for discharge. Understands and agrees with plan. Return if worsening or concerning symptoms. NAD. ANDINO. Grateful for care. (JUAN FRANCISCO HOOPER) - Vital Signs Vital signs: Temp Pulse Resp BP Pulse Ox 98.2 F 84 16 138/86 H 99 08/29/17 02:27 08/28/17 23:04 08/29/17 02:27 08/29/17 02:27 08/29/17 02:27 - Laboratory Laboratory results interpreted by me: 08/29/17 00:30 RDW 14.3 H Discharge <BEHZAD KING - Last Filed: 08/29/17 00:39> <JUAN FRANCISCO HOOPER - Last Filed: 08/29/17 03:30> - Discharge Clinical Impression: Headache Qualifiers: Headache type: unspecified Headache chronicity pattern: acute headache Intractability: not intractable Qualified Code(s): R51 - Headache Sinusitis Qualifiers: Sinusitis location: maxillary Chronicity: acute Recurrence: not specified as recurrent Qualified Code(s): J01.00 - Acute maxillary sinusitis, unspecified Condition: Stable Disposition: HOME, SELF-CARE Instructions: Headache ([facility]), Sinusitis ([facility]) Prescriptions: Ondansetron [Zofran Odt 4 mg Tablet] 1 tab PO Q6HP PRN #15 tab.rapdis PRN Reason: For Nausea/Vomiting Azithromycin 250 mg PO DAILY #4 tablet Cetirizine HCl [Zyrtec 10 mg Tablet] 1 tab PO DAILY #30 tablet Fluticasone Propionate 15.8 ml NS DAILY #1 spray.susp Metoclopramide HCl [Reglan 10 mg Tablet] 1 tab PO TIDP PRN #25 tablet PRN Reason: Forms: Return to Work Referrals: ANDERSON ROBERSON NP [Primary Care Provider] - Follow up in 3-5 days JUDE GOINS MD [COMMUNITY BASED STAFF] - Follow up in 1 month Scribe Attestation: 08/29/17 03:30 I personally performed the services described in the documentation, reviewed and edited the documentation which was dictated to the scribe in my presence, and it accurately records my words and actions. (JUAN FRANCISCO HOOPER) Scribe Documentation - Scribe Written by Scribe:: Chandni Rand, 08/29/2017 0034 acting as scribe for :: Mary <BEHZAD KING - Last Filed: 08/29/17 00:39>
[2017-08-29 00:46] LABS: ABSOLUTE EOSINOPHILS # (AUTO) 0.1 10^3/uL (0.0-0.6); ABSOLUTE LYMPHOCYTES (AUTO) 1.6 10^3/uL (0.5-4.7); ABSOLUTE MONOCYTES (AUTO) 0.5 10^3/uL (0.1-1.4); ABSOLUTE NEUT (AUTO) 4.3 10^3/uL (1.7-8.2); BASOPHILS % (AUTO) 0.3 % (0-2); EOSINOPHILS % (AUTO) 2.1 % (0-6); LYMPHOCYTES % (AUTO) 25.2 % (13-45); MEAN CORPUSCULAR HEMOGLOBIN 29.2 pg (27.0-33.4); MEAN CORPUSCULAR HGB CONC 33.2 g/dL (32.0-36.0); MEAN CORPUSCULAR VOLUME 88 fl (80-97); MONOCYTES % (AUTO) 7.3 % (3-13); PLATELET COUNT 251 10^3/uL (150-450); RED BLOOD COUNT 4.09 10^6/uL (3.72-5.28); RED CELL DISTRIBUTION WIDTH 14.3 % (11.5-14.0); SEGMENTED NEUTROPHILS % (AUTO) 65.1 % (42-78); TOTAL CELLS COUNTED % (AUTO) 100 %; WHITE BLOOD COUNT 6.5 10^3/uL (4.0-10.5)
[2017-08-29 00:53] LABS: APPEARANCE,URINE CLEAR; BILIRUBIN,URINE NEGATIVE (NEGATIVE); COLOR,URINE COLORLESS; GLUCOSE, URINE NEGATIVE (NEGATIVE); KETONES,URINE NEGATIVE (NEGATIVE); LEUKOCYTE ESTERASE,URINE NEGATIVE (NEGATIVE); NITRITE,URINE NEGATIVE (NEGATIVE); PROTEIN,URINE NEGATIVE (NEGATIVE); URINE SPECIFIC GRAVITY 1.004; UROBILINOGEN,URINE NEGATIVE mg/dL (<2.0)
--- NOTE | 2017-08-29 01:09 | RADIOLOGY REPORT (SQ) ---
EXAM DESCRIPTION: CT HEAD WITHOUT CLINICAL HISTORY: 42 years Female, R headache, recent anticoagulation COMPARISON: None. TECHNIQUE: No contrast. This exam was performed according to our departmental dose-optimization program, which includes automated exposure control, adjustment of the mA and/or kV according to patient size and/or use of iterative reconstruction technique. FINDINGS: No hemorrhage or infarct. No mass, mass effect, or midline shift. Minimal mucosal thickening-fluid of the right maxillary sinus. Brain and extra-axial structures appear otherwise intact. IMPRESSION: Minimal right maxillary sinusitis. Else, unremarkable CT of the head.
[2017-08-29 01:12] LABS: ALANINE AMINOTRANSFERASE 21 U/L (9-52); ALBUMIN 4.2 g/dL (3.5-5.0); ALKALINE PHOSPHATASE 86 U/L (38-126); ANION GAP 8 (5-19); ASPARTATE AMINO TRANSFERASE 29 U/L (14-36); BILIRUBIN,DIRECT 0.1 mg/dL (0.0-0.4); BILIRUBIN,TOTAL 0.2 mg/dL (0.2-1.3); BLOOD UREA NITROGEN 12 mg/dL (7-20); CALCIUM 9.5 mg/dL (8.4-10.2); CARBON DIOXIDE 26 mmol/L (22-30); CHLORIDE 105 mmol/L (98-107); GLUCOSE 92 mg/dL (75-110); POTASSIUM 4.1 mmol/L (3.6-5.0); SODIUM 139.2 mmol/L (137-145); TOTAL PROTEIN 7.1 g/dL (6.3-8.2)
[2017-08-29] MEDS ORDERED: ONDANSETRON ODT 4 MG TAB (6 TAB/ER DISP) PO PRN (02:36)
[2017-08-29] MEDS ORDERED: AZITHROMYCIN 250 MG TABLET PO ONE (02:36)
[2017-08-29 02:47] VITALS: BP 138/86
== END 2017-08-29 03:00 | disposition home or self-care (01) ==
LOC: ER 22:55
DX: J01.00 Acute maxillary sinusitis, unspecified (principal); R51 Headache; I10 Essential (primary) hypertension; Z86.718 Personal history of other venous thrombosis and embolism; Z90.710 Acquired absence of both cervix and uterus; Z79.02 Long term (current) use of antithrombotics/antiplatelets
CPT/HCPCS: 96376; 99284; 96374; 96375; 36415; 85025; 80053; 81001; 70450; J1200; J0780; J2405

== ENCOUNTER 2017-09-05 20:24 | Emergency (ER) | payer BC ==
--- NOTE | 2017-09-05 22:36 | ER Document Report ---
ED Medical Screen (RME) - General Chief Complaint: Headache Stated Complaint: HEAD PAIN, BACK AND SIDE PAIN Time Seen by Provider: 09/05/17 22:34 Notes: 42-year-old female, chief complaint of abdominal pain, reports sharp intermittent pain mainly in her mid upper abdomen worse on the left. She reports nausea but denies vomiting, had a normal bowel movement within the past 24 hours. She denies fever or chills. She also reports some pain in her right flank. She states she had pain with deep breaths but denies any currently. Headache from earlier resolved. Currently on Augmentin for a sinus infection. She has had a partial hysterectomy. TRAVEL OUTSIDE OF THE [place] IN LAST 30 DAYS: No - Related Data Allergies/Adverse Reactions: No Known Allergies Allergy (Verified 09/05/17 20:25) Past Medical History - Social History Chew tobacco use (# tins/day): No Frequency of alcohol use: None Drug Abuse: None Family history: None - Past Medical History Cardiac Medical History: Reports: Hx DVT - 2004, 2017, Hx Hypertension, Hx Pulmonary Embolism Renal/ Medical History: Denies: Hx Peritoneal Dialysis Past Surgical History: Reports: Hx Hysterectomy - Immunizations Hx Diphtheria, Pertussis, Tetanus Vaccination: Yes Physical Exam - Vital signs Vitals: Temp Pulse Resp BP Pulse Ox 98.5 F 93 18 139/96 H 100 09/05/17 20:51 09/05/17 20:51 09/05/17 20:51 09/05/17 20:51 09/05/17 20:51 - Abdominal Tenderness: Tender - Minimal generalized tenderness, nonspecific, no guarding, no rebound tenderness. Exam limited by sitting position - Back Back: Normal. No: Tender, CVA tenderness Course - Vital Signs Vital signs: Temp Pulse Resp BP Pulse Ox 98.5 F 93 18 139/96 H 100 09/05/17 20:51 09/05/17 20:51 09/05/17 20:51 09/05/17 20:51 09/05/17 20:51
[2017-09-05 23:03] LABS: ABSOLUTE EOSINOPHILS # (AUTO) 0.1 10^3/uL (0.0-0.6); ABSOLUTE LYMPHOCYTES (AUTO) 2.5 10^3/uL (0.5-4.7); ABSOLUTE MONOCYTES (AUTO) 0.5 10^3/uL (0.1-1.4); ABSOLUTE NEUT (AUTO) 4.9 10^3/uL (1.7-8.2); BASOPHILS % (AUTO) 0.6 % (0-2); EOSINOPHILS % (AUTO) 1.4 % (0-6); HEMATOCRIT 42.1 % (36.0-47.0); HEMOGLOBIN 13.9 g/dL (12.0-15.5); LYMPHOCYTES % (AUTO) 31.3 % (13-45); MEAN CORPUSCULAR HEMOGLOBIN 29.2 pg (27.0-33.4); MEAN CORPUSCULAR VOLUME 88 fl (80-97); MONOCYTES % (AUTO) 5.8 % (3-13); PLATELET COUNT 253 10^3/uL (150-450); RED BLOOD COUNT 4.77 10^6/uL (3.72-5.28); RED CELL DISTRIBUTION WIDTH 14.2 % (11.5-14.0); SEGMENTED NEUTROPHILS % (AUTO) 60.9 % (42-78); TOTAL CELLS COUNTED % (AUTO) 100 %
[2017-09-05 23:10] LABS: APPEARANCE,URINE CLEAR; BILIRUBIN,URINE NEGATIVE (NEGATIVE); COLOR,URINE STRAW; GLUCOSE, URINE NEGATIVE (NEGATIVE); KETONES,URINE NEGATIVE (NEGATIVE); LEUKOCYTE ESTERASE,URINE NEGATIVE (NEGATIVE); NITRITE,URINE NEGATIVE (NEGATIVE); PROTEIN,URINE NEGATIVE (NEGATIVE); URINE SPECIFIC GRAVITY 1.006; UROBILINOGEN,URINE NEGATIVE mg/dL (<2.0)
[2017-09-05 23:23] LABS: ALANINE AMINOTRANSFERASE 33 U/L (9-52); ALKALINE PHOSPHATASE 106 U/L (38-126); ANION GAP 14 (5-19); ASPARTATE AMINO TRANSFERASE 28 U/L (14-36); BILIRUBIN,DIRECT 0.2 mg/dL (0.0-0.4); BILIRUBIN,TOTAL 0.4 mg/dL (0.2-1.3); BLOOD UREA NITROGEN 13 mg/dL (7-20); CALCIUM 10.4 mg/dL (8.4-10.2); CARBON DIOXIDE 28 mmol/L (22-30); CHLORIDE 98 mmol/L (98-107); GLUCOSE 99 mg/dL (75-110); LIPASE 73.6 U/L (23-300); POTASSIUM 3.6 mmol/L (3.6-5.0); SODIUM 139.9 mmol/L (137-145); TOTAL PROTEIN 8.3 g/dL (6.3-8.2)
[2017-09-05] MEDS ORDERED: DIPHENHYDRAMINE HCL 50 MG CAPSULE PO ONE (23:30)
[2017-09-05] MEDS ORDERED: PROCHLORPERAZINE MALEATE 10 MG TABLET PO ONE (23:30)
--- NOTE | 2017-09-06 00:31 | ER Document Report ---
ED General - General Chief Complaint: Headache Stated Complaint: HEAD PAIN, BACK AND SIDE PAIN Time Seen by Provider: 09/05/17 22:34 Mode of Arrival: Ambulatory Information source: Patient Notes: 42-year-old female presents with multiple complaints. Patient has a history of 2 DVTs is on Xarelto, notes that she was seen last week for similar headaches which she has a history of migraines notes the headache returns, she denies any suddenness or difference in the pain itself. Patient also notes that she is having right sided chest pain that hurts with breathing. She denies any fevers denies a cough patient also admits to upper abdominal pain but denies any nausea vomiting or diarrhea states the pain is on the right left and epigastric regions TRAVEL OUTSIDE OF THE [place] IN LAST 30 DAYS: No - HPI Onset: Other Onset/Duration: Intermittent Quality of pain: Sharp Severity: Mild Pain Level: 1 Associated symptoms: Body/muscle aches, Shortness of breath, Other Exacerbated by: Deep breathing Relieved by: Denies Similar symptoms previously: Yes Recently seen / treated by doctor: Yes - Related Data Allergies/Adverse Reactions: No Known Allergies Allergy (Verified 09/05/17 20:25) Past Medical History - Social History Smoking Status: Never Smoker Cigarette use (# per day): No Chew tobacco use (# tins/day): No Smoking Education Provided: No Frequency of alcohol use: None Drug Abuse: None Family History: Other - Breast CA--aunt, cousin sister with DVT Patient has suicidal ideation: No Patient has homicidal ideation: No - Past Medical History Cardiac Medical History: Reports: Hx DVT - 2004, 2017, Hx Hypertension, Hx Pulmonary Embolism Renal/ Medical History: Denies: Hx Peritoneal Dialysis Past Surgical History: Reports: Hx Hysterectomy - Immunizations Hx Diphtheria, Pertussis, Tetanus Vaccination: Yes Review of Systems - Review of Systems Notes: REVIEW OF SYSTEMS: CONSTITUTIONAL : Denies fever, chills, or sweats. Denies recent illness. EENT: Denies eye, ear, throat, or mouth pain or symptoms. Denies nasal or sinus congestion or discharge. Denies throat, tongue, or mouth swelling or difficulty swallowing. CARDIOVASCULAR: Denies chest pain. Denies palpitations or racing or irregular heart beat. Denies ankle edema. RESPIRATORY: Admits to right chest wall pain with intermittent shortness of breath when taking deep breaths GASTROINTESTINAL: Admits to epigastric right upper quadrant left upper quadrant abdominal pain GENITOURINARY: Denies difficulty urinating, painful urination, burning, frequency, blood in urine, or discharge. FEMALE GENITOURINARY: Denies vaginal bleeding, heavy or abnormal periods, irregular periods. Denies vaginal discharge or odor. MUSCULOSKELETAL: Denies back or neck pain or stiffness. Denies joint pain or swelling. SKIN: Denies rash, lesions or sores. HEMATOLOGIC : Denies easy bruising or bleeding. LYMPHATIC: Denies swollen, enlarged glands. NEUROLOGICAL: Admits to headache PSYCHIATRIC: Denies anxiety or stress. Denies depression, suicidal ideation, or homicidal ideation. ALL OTHER SYSTEMS REVIEWED AND NEGATIVE. PHYSICAL EXAMINATION: GENERAL: Well-appearing, well-nourished and in no acute distress. HEAD: Atraumatic, normocephalic. EYES: Pupils equal round and reactive to light, extraocular movements intact, conjunctiva are normal. ENT: Nares patent, oropharynx clear without exudates. Moist mucous membranes. NECK: Normal range of motion, supple without lymphadenopathy LUNGS: Breath sounds clear to auscultation bilaterally and equal. No wheezes rales or rhonchi. Right-sided chest pain easily reproducible upon palpation HEART: Regular rate and rhythm without murmurs ABDOMEN: Soft, nontender, nondistended abdomen. No guarding, no rebound. No masses appreciated. Physical examination benign Female : deferred Musculoskeletal: Normal range of motion, no pitting or edema. No cyanosis. NEUROLOGICAL: Cranial nerves grossly intact. Normal speech, normal gait. Normal sensory, motor exams PSYCH: Normal mood, normal affect. SKIN: Warm, Dry, normal turgor, no rashes or lesions noted. Dictation was performed using [employer] voice recognition software Physical Exam - Vital signs Vitals: Temp Pulse Resp BP Pulse Ox 98.5 F 93 18 139/96 H 100 09/05/17 20:51 09/05/17 20:51 09/05/17 20:51 09/05/17 20:51 09/05/17 20:51 Course - Re-evaluation Re-evalutation: 09/06/17 00:30 I have very low suspicion for any life-threatening issues except for concerns of a pulmonary emboli secondary to history of DVTs. Patient is on Xarelto and should be at low risk for this however a CTA has been ordered to rule it out. Otherwise she looks well is in no distress her lab work is extremely benign 09/06/17 03:01 imaging is negative, she looks well, headache has resolved. pt is otherwise in no distress , will dc home with neuro follow up After performing a Medical Screening Examination, I estimate there is LOW risk for RUPTURED ESOPHAGUS, PNEUMOTHORAX, PULMONARY EMBOLISM, ACUTE CORONARY SYNDROME, OR THORACIC AORTIC DISSECTION, thus I consider the discharge disposition reasonable. I have reevaluated this patient multiple times and no significant life threatening changes are noted. The patient and I have discussed the diagnosis and risks, and we agree with discharging home with close follow-up. We also discussed returning to the Emergency Department immediately if new or worsening symptoms occur. We have discussed the symptoms which are most concerning (e.g., bloody sputum, worsening pain or shortness of breath) that necessitate immediate return. - Vital Signs Vital signs: Temp Pulse Resp BP Pulse Ox 98.5 F 93 16 131/88 H 99 09/06/17 01:59 09/05/17 20:51 09/06/17 02:01 09/06/17 02:01 09/06/17 02:01 - Laboratory Result Diagrams: 09/05/17 22:42 09/05/17 22:42 Laboratory results interpreted by me: 09/05/17 09/05/17 22:42 22:42 RDW 14.2 H Calcium 10.4 H Total Protein 8.3 H - Diagnostic Test Radiology reviewed: Image reviewed, Reports reviewed Discharge - Discharge Clinical Impression: Flank pain, Chest wall pain Condition: Stable Disposition: HOME, SELF-CARE Instructions: Chest Wall Pain ([facility]) Referrals: ANDERSON ROBERSON NP [Primary Care Provider] - Follow up as needed ARIANA MILES MD [NO LOCAL MD] - Follow up tomorrow
--- NOTE | 2017-09-06 01:22 | RADIOLOGY REPORT (SQ) ---
EXAM DESCRIPTION: CTA of the chest per PE protocol with contrast. CLINICAL HISTORY: hx dvt x2, right side chest pain COMPARISON: 08/09/2017 TECHNIQUE: CTA of the chest obtained following the uncomplicated intravenous administration of 80 mL Isovue-370. 3-D/MIP reformatted images of the chest available for evaluation. FINDINGS: Chest: Mediastinal windows demonstrate an adequate contrast bolus. No pulmonary embolus identified. Visualized thyroid gland is unremarkable. Great vessels have normal anatomic configuration. No cardiomegaly, coronary artery atherosclerosis, or pericardial effusion. No abnormalities of the esophagus. Scattered mediastinal lymph nodes are not enlarged by CT criteria. Lung windows demonstrate no consolidation, pneumothorax, or pleural effusion. No abnormalities of the visualized trachea or airways. Limited images of the upper abdomen demonstrate no abnormalities of the visualized liver, spleen, pancreas, adrenal glands, gallbladder, or kidneys. Degenerative change of the spine. DLP: 760.34 mGycm IMPRESSION: 1. No pulmonary embolus identified. This exam was performed according to our departmental dose-optimization program, which includes automated exposure control, adjustment of the mA and/or kV according to patient size and/or use of iterative reconstruction technique.
[2017-09-06 02:27] VITALS: BP 131/88
== END 2017-09-06 02:27 | disposition home or self-care (01) ==
LOC: ER 20:24
DX: M54.9 Dorsalgia, unspecified (principal); R07.89 Other chest pain; R51 Headache; M79.1 Myalgia; R06.02 Shortness of breath; I10 Essential (primary) hypertension; Z86.718 Personal history of other venous thrombosis and embolism; Z79.01 Long term (current) use of anticoagulants; Z90.710 Acquired absence of both cervix and uterus
CPT/HCPCS: 99284; 36415; 83690; 85025; 80053; 81001; 71275; S0183

== ENCOUNTER 2017-10-07 21:06 | Emergency (ER) | payer BC ==
[2017-10-07 22:42] LABS: APPEARANCE,URINE CLEAR; BILIRUBIN,URINE NEGATIVE (NEGATIVE); COLOR,URINE YELLOW; GLUCOSE, URINE NEGATIVE (NEGATIVE); KETONES,URINE NEGATIVE (NEGATIVE); LEUKOCYTE ESTERASE,URINE LARGE (NEGATIVE); NITRITE,URINE NEGATIVE (NEGATIVE); PROTEIN,URINE 30 mg/dL (NEGATIVE); URINE SPECIFIC GRAVITY 1.004; UROBILINOGEN,URINE NEGATIVE mg/dL (<2.0)
[2017-10-07 22:44] LABS: ABSOLUTE EOSINOPHILS # (AUTO) 0.1 10^3/uL (0.0-0.6); ABSOLUTE LYMPHOCYTES (AUTO) 2.2 10^3/uL (0.5-4.7); ABSOLUTE MONOCYTES (AUTO) 0.6 10^3/uL (0.1-1.4); ABSOLUTE NEUT (AUTO) 7.3 10^3/uL (1.7-8.2); BASOPHILS % (AUTO) 0.3 % (0-2); EOSINOPHILS % (AUTO) 1.1 % (0-6); HEMATOCRIT 37.4 % (36.0-47.0); HEMOGLOBIN 12.1 g/dL (12.0-15.5); LYMPHOCYTES % (AUTO) 21.4 % (13-45); MEAN CORPUSCULAR HEMOGLOBIN 28.6 pg (27.0-33.4); MEAN CORPUSCULAR HGB CONC 32.4 g/dL (32.0-36.0); MEAN CORPUSCULAR VOLUME 88 fl (80-97); PLATELET COUNT 252 10^3/uL (150-450); RED BLOOD COUNT 4.23 10^6/uL (3.72-5.28); RED CELL DISTRIBUTION WIDTH 14.6 % (11.5-14.0); SEGMENTED NEUTROPHILS % (AUTO) 71.2 % (42-78); TOTAL CELLS COUNTED % (AUTO) 100 %; WHITE BLOOD COUNT 10.2 10^3/uL (4.0-10.5)
[2017-10-07] MEDS ORDERED: CEFTRIAXONE INJ 1000 MG VIAL IM ONE (22:59)
[2017-10-07] MEDS ORDERED: LIDOCAINE 1% INJ-PF (10 MG/ML) 30 ML SDV INFIL ONE (22:59)
--- NOTE | 2017-10-07 23:02 | ER Document Report ---
ED General - General Chief Complaint: Blood in urine, low abdominal pressure Stated Complaint: BLOOD IN URINE Time Seen by Provider: 10/07/17 22:19 Notes: Patient is a 42-year-old female who presents with complaints of some dysuria as well as blood in her urine. No passing clots. Said her urine has been red today. She is on Eliquis due to a history of DVT. She was diagnosed with DVT in July. This is her second DVT and occurred after an injury to her leg. She denies fevers. Some spasm into the bladder type region. No muscle aches. No vomiting. No diarrhea. No other complaints at this time. TRAVEL OUTSIDE OF THE [place] IN LAST 30 DAYS: No - Related Data Allergies/Adverse Reactions: No Known Allergies Allergy (Verified 09/05/17 20:25) Past Medical History - Social History Smoking Status: Never Smoker Frequency of alcohol use: None Drug Abuse: None Family History: Other - Breast CA--aunt, cousin sister with DVT Patient has suicidal ideation: No Patient has homicidal ideation: No - Past Medical History Cardiac Medical History: Reports: Hx DVT - 2004, 2017, Hx Hypertension, Hx Pulmonary Embolism Renal/ Medical History: Denies: Hx Peritoneal Dialysis Past Surgical History: Reports: Hx Hysterectomy - Immunizations Hx Diphtheria, Pertussis, Tetanus Vaccination: Yes Review of Systems - Review of Systems Notes: My Normal Review Basic REVIEW OF SYSTEMS: CONSTITUTIONAL : Denies fever, chills, or sweats. Denies recent illness. EENT: Denies eye, ear, throat, or mouth pain or symptoms. Denies nasal or sinus congestion. CARDIOVASCULAR: No chest pain or shortness of breath. RESPIRATORY: Denies cough, cold, or chest congestion. Denies shortness of breath, difficulty breathing, or wheezing. GASTROINTESTINAL: Denies abdominal pain. Denies nausea, vomiting, or diarrhea. Denies constipation. Last BM: GENITOURINARY: Some dysuria. MUSCULOSKELETAL: Denies neck or back pain or joint pain or swelling. SKIN: Denies rash or skin lesions. HEMATOLOGIC : On blood thinning medication NEUROLOGICAL: Denies altered mental status or loss of consciousness. Denies headache. Denies weakness or paralysis or loss of use of either ALL OTHER SYSTEMS REVIEWED AND NEGATIVE. Physical Exam - Vital signs Vitals: Temp Pulse Resp BP Pulse Ox 97.6 F 98 12 152/96 H 100 10/07/17 21:14 10/07/17 21:14 10/07/17 21:14 10/07/17 21:14 10/07/17 21:14 - Notes Notes: General Appearance: Well nourished, alert, cooperative, no acute distress, no obvious discomfort. Well-appearing. Vitals: reviewed, See vital signs table. Eyes: PERRL, EOMI, Conjuctiva clear Mouth: No decreasd moisture Lungs: No wheezing, No rales, No rhonci, No accessory muscle use, good air exchange bilaterally. Heart: Normal rate, Regular rythm, No murmur, no rub Abdomen: Normal BS, soft, No rigidity, mild suprapubic abdominal tenderness palpation, No guarding, no rebound, no abdominal masses, no organomegaly Extremities: strength 5/5 in all extremities, good pulses in all extremities, no swelling or tenderness in the extremities, no edema. Bedside ultrasound shows fully compressible left femoral vein with good augmentation of flow with calf squeeze. Skin: warm, dry, appropriate color, no rash Neuro: speech clear, oriented x 3, normal affect, responds appropriately to questions. Course - Re-evaluation Re-evalutation: 10/08/17 04:32 Urinalysis shows evidence of infection. I suspect she has hemorrhagic cystitis which probably has some more blood than usual because she is on Xarelto. I did do a bedside ultrasound and she has full compression of the femoral vein of the left leg as well as good augmentation of flow with calf squeeze. I informed her that it is unlikely that she has a large DVT based on my ultrasound therefore I feel comfortable having her hold her Xarelto for 1 day while we treat her infection. I informed her she can restart after 1 day. I encouraged her to return to ER immediately if she has increased bleeding, passing of clots , fevers, chest pain or shortness of breath, or she feels unwell. Patient agrees with plan will be discharged home. Dictation of this chart was performed using voice recognition software; therefore, there may be some unintended grammatical errors. - Vital Signs Vital signs: Temp Pulse Resp BP Pulse Ox 98.1 F 95 16 130/85 H 98 10/08/17 00:19 10/08/17 00:19 10/08/17 00:19 10/08/17 00:19 10/08/17 00:19 - Laboratory Result Diagrams: 10/07/17 22:35 10/07/17 22:35 Laboratory results interpreted by me: 10/07/17 10/07/17 10/07/17 22:00 22:35 22:35 RDW 14.6 H Carbon Dioxide 31 H Creatine Kinase 158 H Urine Protein 30 H Urine Blood LARGE H Ur Leukocyte Esterase LARGE H Discharge - Discharge Clinical Impression: UTI (urinary tract infection) Qualifiers: Urinary tract infection type: site unspecified Hematuria presence: with hematuria Qualified Code(s): N39.0 - Urinary tract infection, site not specified Hematuria Qualifiers: Hematuria type: unspecified type Qualified Code(s): R31.9 - Hematuria, unspecified Condition: Good Disposition: HOME, SELF-CARE Additional Instructions: Please take the antibiotics as prescribed. Please hold your Xarelto for 24 hours and than restart. Please return to the ER if you have worsening bleeding in your urine, passing of clots, fevers, chest pain, difficulty breathing, or feel that you are worsening in any way. Please follow up with your doctor on Friday for reevaluation. Prescriptions: Cephalexin Monohydrate [Keflex 500 mg Capsule] 500 mg PO BID 5 Days #10 capsule Forms: Return to Work Referrals: ANDERSON ROBERSON NP [Primary Care Provider] - 10/10/17
[2017-10-07 23:11] LABS: ANION GAP 8 (5-19); BLOOD UREA NITROGEN 13 mg/dL (7-20); CALCIUM 9.7 mg/dL (8.4-10.2); CARBON DIOXIDE 31 mmol/L (22-30); CHLORIDE 102 mmol/L (98-107); CREATINE KINASE 158 U/L (30-135); GLUCOSE 102 mg/dL (75-110); POTASSIUM 3.7 mmol/L (3.6-5.0); SODIUM 140.9 mmol/L (137-145)
[2017-10-08 00:20] VITALS: BP 130/85
== END 2017-10-08 00:19 | disposition home or self-care (01) ==
LOC: ER 21:06
DX: N39.0 Urinary tract infection, site not specified (principal); R31.9 Hematuria, unspecified; Z79.02 Long term (current) use of antithrombotics/antiplatelets; Z86.718 Personal history of other venous thrombosis and embolism; I10 Essential (primary) hypertension; Z86.711 Personal history of pulmonary embolism; Z90.710 Acquired absence of both cervix and uterus
CPT/HCPCS: 99283; 96372; 36415; 82550; 85025; 81025; 80048; 81001; J3490; J0696

== ENCOUNTER 2017-12-10 19:05 | Emergency (ER) | payer OTHER, BC ==
[2017-12-10 19:12] VITALS: BP 138/82
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
== END 2017-12-10 19:52 | disposition home or self-care (01) ==
LOC: ER 19:05
DX: S29.012A Strain of muscle and tendon of back wall of thorax, initial encounter (principal); S16.1XXA Strain of muscle, fascia and tendon at neck level, initial encounter; V43.52XA Car driver injured in collision with other type car in traffic accident, initial encounter; I10 Essential (primary) hypertension; Z79.899 Other long term (current) drug therapy
CPT/HCPCS: 99283

== ENCOUNTER 2017-12-25 16:35 | Emergency (ER) | payer BC, OTHER ==
[2017-12-25] MEDS ORDERED: ACETAMINOPHEN 325 MG TABLET PO ONE (16:52)
--- NOTE | 2017-12-25 16:54 | ER Document Report ---
ED Medical Screen (RME) - General Chief Complaint: Ankle Pain Stated Complaint: ANKLE PAIN Time Seen by Provider: 12/25/17 16:49 Notes: RAPID MEDICAL EVALUATION DISCLOSURE I have seen this patient as part of a Rapid Medical Evaluation and, if applicable, placed any initially appropriate orders. The patient will be seen and fully evaluated, including a full history and physical exam, by a provider ( in Main ED or Fast Track) when a room becomes available. 42-year-old female PMH DVT here with complaints of left ankle pain ongoing for the past few days. She describes the pain as tightness. Has not had any heavy lifting or traumatic injury/impact. States he feels like her previous DVTs, of which she has had 2 previous. She is currently taking a blood thinner. She denies shortness of breath chest pain. EXAM CTAB RRR No appreciable TTP of left calf or ankle TRAVEL OUTSIDE OF THE [place] IN LAST 30 DAYS: No - Related Data Allergies/Adverse Reactions: No Known Allergies Allergy (Verified 12/10/17 19:07) Past Medical History - Social History Family history: None - Past Medical History Cardiac Medical History: Reports: Hx DVT - 2017, Hx Hypertension, Hx Pulmonary Embolism Renal/ Medical History: Reports: Hx Ovarian Cysts. Denies: Hx Peritoneal Dialysis Past Surgical History: Reports: Hx Breast Surgery - Cyst left breast, Hx Hysterectomy - Immunizations Hx Diphtheria, Pertussis, Tetanus Vaccination: Yes Physical Exam - Vital signs Vitals: Temp Pulse Resp BP Pulse Ox 99.3 F 100 16 135/79 H 99 12/25/17 16:40 12/25/17 16:40 12/25/17 16:40 12/25/17 16:40 12/25/17 16:40 Course - Vital Signs Vital signs: Temp Pulse Resp BP Pulse Ox 99.3 F 100 16 135/79 H 99 12/25/17 16:40 12/25/17 16:40 12/25/17 16:40 12/25/17 16:40 12/25/17 16:40 Doctor's Discharge - Discharge Referrals: ANDERSON ROBERSON, [employer] SALESPERSON [Primary Care Provider] - Follow up as needed
[2017-12-25 17:16] LABS: ABSOLUTE EOSINOPHILS # (AUTO) 0.1 10^3/uL (0.0-0.6); ABSOLUTE LYMPHOCYTES (AUTO) 1.9 10^3/uL (0.5-4.7); ABSOLUTE MONOCYTES (AUTO) 0.5 10^3/uL (0.1-1.4); ABSOLUTE NEUT (AUTO) 4.9 10^3/uL (1.7-8.2); BASOPHILS % (AUTO) 0.3 % (0-2); EOSINOPHILS % (AUTO) 1.4 % (0-6); HEMATOCRIT 36.1 % (36.0-47.0); HEMOGLOBIN 12.1 g/dL (12.0-15.5); LYMPHOCYTES % (AUTO) 25.5 % (13-45); MEAN CORPUSCULAR HEMOGLOBIN 29.3 pg (27.0-33.4); MEAN CORPUSCULAR HGB CONC 33.4 g/dL (32.0-36.0); MEAN CORPUSCULAR VOLUME 88 fl (80-97); MONOCYTES % (AUTO) 6.7 % (3-13); PLATELET COUNT 294 10^3/uL (150-450); RED BLOOD COUNT 4.12 10^6/uL (3.72-5.28); RED CELL DISTRIBUTION WIDTH 14.1 % (11.5-14.0); SEGMENTED NEUTROPHILS % (AUTO) 66.1 % (42-78); TOTAL CELLS COUNTED % (AUTO) 100 %; WHITE BLOOD COUNT 7.4 10^3/uL (4.0-10.5)
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
[2017-12-25 17:36] LABS: ALANINE AMINOTRANSFERASE 21 U/L (9-52); ALKALINE PHOSPHATASE 94 U/L (38-126); ANION GAP 9 (5-19); ASPARTATE AMINO TRANSFERASE 23 U/L (14-36); BILIRUBIN,DIRECT 0.3 mg/dL (0.0-0.4); BILIRUBIN,TOTAL 0.3 mg/dL (0.2-1.3); BLOOD UREA NITROGEN 14 mg/dL (7-20); CALCIUM 9.5 mg/dL (8.4-10.2); CARBON DIOXIDE 27 mmol/L (22-30); CHLORIDE 107 mmol/L (98-107); GLUCOSE 88 mg/dL (75-110); POTASSIUM 4.1 mmol/L (3.6-5.0); SODIUM 143.1 mmol/L (137-145); TOTAL PROTEIN 7.3 g/dL (6.3-8.2)
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
--- NOTE | 2017-12-25 18:15 | RADIOLOGY REPORT (SQ) ---
EXAM DESCRIPTION: VENOUS UNILATERAL LOWER COMPLETED DATE/TIME: 12/25/2017 6:06 pm REASON FOR STUDY: LLE calf pain; eval dvt COMPARISON: None. TECHNIQUE: Dynamic and static ferguson scale and color images acquired of the left leg venous system. Se lected spectral images acquired with additional compression and augmentation maneuvers. The contralat eral common femoral vein and saphenofemoral junction were also imaged. Images stored on PACS. LIMITATIONS: None. FINDINGS: COMMON FEMORAL: Normal phasicity, compression and augmentation. No visualized echogenic ma terial on ferguson scale. No defects on color images. FEMORAL: Normal compression and augmentation. No visualized echogenic material on ferguson scale. No defe cts on color images. POPLITEAL: Normal compression, augmentation. No visualized echogenic material on ferguson scale. No defec ts on color images. CALF VESSELS: Normal compression, augmentation. No visualized echogenic material on ferguson scale. No de fects on color images. GSV and SSV: Normal compression, augmentation. No visualized echogenic material on ferguson scale. No def ects on color images. ANY DEEP VENOUS INSUFFICIENCY: Not evaluated. ANY EVIDENCE OF POPLITEAL CYST: No. OTHER: No other significant finding. CONTRALATERAL COMMON FEMORAL VEIN AND SAPHENOFEMORAL JUNCTION: Normal phasicity, compression and augmentation. No visualized echogenic material on ferguson scale. No de fects on color images. IMPRESSION: NO EVIDENCE DVT OR SVT IN THE LEFT LEG. TECHNICAL DOCUMENTATION: JOB ID: [id number] [employer]- All Rights Reserved Reading location - IP/workstation name: [email or web address]
[2017-12-25 18:43] VITALS: BP 123/77
== END 2017-12-25 18:43 | disposition home or self-care (01) ==
LOC: ER 16:35
DX: M79.662 Pain in left lower leg (principal); M25.572 Pain in left ankle and joints of left foot; I10 Essential (primary) hypertension; Z86.718 Personal history of other venous thrombosis and embolism; Z86.711 Personal history of pulmonary embolism
CPT/HCPCS: 36415; 80053; 85025; 93971; 99284

== ENCOUNTER 2018-03-18 23:31 | Emergency (ER) | payer BC ==
[2018-03-19 00:51] LABS: ABSOLUTE EOSINOPHILS # (AUTO) 0.2 10^3/uL (0.0-0.6); ABSOLUTE LYMPHOCYTES (AUTO) 1.3 10^3/uL (0.5-4.7); ABSOLUTE MONOCYTES (AUTO) 0.7 10^3/uL (0.1-1.4); ABSOLUTE NEUT (AUTO) 7.5 10^3/uL (1.7-8.2); BASOPHILS % (AUTO) 0.5 % (0-2); EOSINOPHILS % (AUTO) 1.9 % (0-6); HEMATOCRIT 36.2 % (36.0-47.0); HEMOGLOBIN 11.9 g/dL (12.0-15.5); LYMPHOCYTES % (AUTO) 13.4 % (13-45); MEAN CORPUSCULAR HEMOGLOBIN 28.8 pg (27.0-33.4); MEAN CORPUSCULAR HGB CONC 32.9 g/dL (32.0-36.0); MEAN CORPUSCULAR VOLUME 88 fl (80-97); PLATELET COUNT 256 10^3/uL (150-450); RED BLOOD COUNT 4.13 10^6/uL (3.72-5.28); RED CELL DISTRIBUTION WIDTH 15.6 % (11.5-14.0); SEGMENTED NEUTROPHILS % (AUTO) 77.2 % (42-78); TOTAL CELLS COUNTED % (AUTO) 100 %; WHITE BLOOD COUNT 9.7 10^3/uL (4.0-10.5)
--- NOTE | 2018-03-19 00:54 | ER Document Report ---
ED General - General Chief Complaint: Chest Pressure Stated Complaint: SHORTNESS OF BREATH Time Seen by Provider: 03/19/18 00:18 Notes: Patient is a 42-year-old female presenting to the emergency department complaining of chest heaviness and shortness of breath. Patient states this morning she drove from [place] back to her house in [place], and during that ride developed some chest heaviness and shortness of breath. Patient admits to having a runny nose and cough, takes medications for seasonal allergies, but states her cough and congestion has gotten worse over the last 2 days. Patient denies fever, nausea, vomiting, diarrhea, abdominal pain, dysuria. Patient has a history of DVT 1 in the right leg and one in the left leg last one was in July, patient takes Xarelto currently. Patient states both coughs intermittently hurt, but both calfs started to hurt this afternoon. Patient states right leg hurts in her upper calf left leg hurts in her lower calf. Patient states she wears compression stockings throughout the day, taking them off at night. She denies either lower leg or calf swelling. Past medical history: DVT, hypertension Surgical history: Hysterectomy Medications: Zyrtec, Xarelto, HCTZ, Tylenol Allergies: None known drug allergies Patient denies smoking, denies illicit drug use, states occasional alcohol use. TRAVEL OUTSIDE OF THE [place] IN LAST 30 DAYS: No - Related Data Allergies/Adverse Reactions: No Known Allergies Allergy (Verified 12/10/17 19:07) Past Medical History - General Information source: Patient - Social History Smoking Status: Never Smoker Lives with: Family Family History: Reviewed & Not Pertinent, Other - Breast CA--aunt, cousin sister with DVT - Past Medical History Cardiac Medical History: Reports: Hx DVT - 2004, 2017, Hx Hypertension, Hx Pulmonary Embolism Renal/ Medical History: Reports: Hx Ovarian Cysts. Denies: Hx Peritoneal Dialysis Past Surgical History: Reports: Hx Breast Surgery - Cyst left breast, Hx Hysterectomy - Immunizations Hx Diphtheria, Pertussis, Tetanus Vaccination: Yes Review of Systems - Review of Systems Constitutional: See HPI EENT: See HPI Cardiovascular: See HPI Respiratory: See HPI Gastrointestinal: See HPI Genitourinary: See HPI Female Genitourinary: See HPI Musculoskeletal: See HPI Skin: See HPI Hematologic/Lymphatic: See HPI Neurological/Psychological: No symptoms reported Physical Exam - Vital signs Vitals: Temp Pulse Resp BP Pulse Ox 98.0 F 100 16 146/91 H 100 03/18/18 23:56 03/18/18 23:56 03/18/18 23:56 03/18/18 23:56 03/18/18 23:56 - Notes Notes: GENERAL: Alert, interacts well. No acute distress. HEAD: Normocephalic, atraumatic. EYES: Pupils equal, round, and reactive to light. Extraocular movements intact. ENT: Oral mucosa moist, tongue midline. NECK: Full range of motion. Supple. Trachea midline. LUNGS: Clear to auscultation bilaterally, no wheezes, rales, or rhonchi. No respiratory distress. HEART: Regular rate and rhythm. No murmur ABDOMEN: Soft, non-tender. Non-distended. Bowel sounds present in all 4 quadrants. EXTREMITIES: Moves all 4 extremities spontaneously. No edema, normal radial and dorsalis pedis pulses bilaterally. No cyanosis or erythema. BACK: no cervical, thoracic, lumbar midline tenderness. No saddle anesthesia, normal distal neurovascular exam. NEUROLOGICAL: Alert and oriented x3. Normal speech. . PSYCH: Normal affect, normal mood. SKIN: Warm, dry, normal turgor. No rashes or lesions noted. Course - Re-evaluation Re-evalutation: Extensive conversation with patient about lab and imaging results. Offered to do a CTA should the Pt. want one due to chest pain or shortness of breath. Patient denies chest pain and shortness of breath upon reeval also states bilateral legs no longer hurt. Pt. stated she does not want another CTA, she stated that she feels better and will follow up with her primary care in the morning. Discussed Pt. presentation, labs and imaging with Dr. Isbell who also agrees with Pt. management. Pt already on Xarelto and will continue to take medications as prescribed, return precautions given. - Vital Signs Vital signs: Temp Pulse Resp BP Pulse Ox 98.9 F 100 18 126/82 H 100 03/19/18 05:28 03/18/18 23:56 03/19/18 05:01 03/19/18 05:01 03/19/18 05:01 - Laboratory Result Diagrams: 03/19/18 00:30 03/19/18 00:30 Laboratory results interpreted by me: 03/19/18 03/19/18 00:30 00:30 Hgb 11.9 L RDW 15.6 H Creatine Kinase 148 H Discharge - Discharge Clinical Impression: Shortness of breath Chest pain Qualifiers: Chest pain type: unspecified Qualified Code(s): R07.9 - Chest pain, unspecified Upper respiratory infection Qualifiers: URI type: unspecified viral URI Qualified Code(s): J06.9 - Acute upper respiratory infection, unspecified Condition: Stable Disposition: HOME, SELF-CARE Additional Instructions: As we discussed you have been seen and treated in the emergency room chest pain and shortness of breath. Your labs are not alarming for any cardiac event. Your chest Xray was also negative. You should follow up with your primary Care Provider in the next 24-48 hours. Return to the ED should you develop chest pains, shortness of breath, fever, swelling in either leg, or other concerning symptoms. Continue your medications as prescribed. Referrals: ANDERSON ROBERSON NP [Primary Care Provider] - Follow up as needed
[2018-03-19 01:10] LABS: ALANINE AMINOTRANSFERASE 24 U/L (9-52); ALKALINE PHOSPHATASE 90 U/L (38-126); ANION GAP 8 (5-19); ASPARTATE AMINO TRANSFERASE 22 U/L (14-36); BILIRUBIN,DIRECT 0.4 mg/dL (0.0-0.4); BILIRUBIN,TOTAL 0.5 mg/dL (0.2-1.3); BLOOD UREA NITROGEN 12 mg/dL (7-20); CALCIUM 9.2 mg/dL (8.4-10.2); CARBON DIOXIDE 26 mmol/L (22-30); CHLORIDE 105 mmol/L (98-107); CREATINE KINASE 148 U/L (30-135); GLUCOSE 96 mg/dL (75-110); POTASSIUM 3.9 mmol/L (3.6-5.0); SODIUM 138.5 mmol/L (137-145); TOTAL PROTEIN 7.4 g/dL (6.3-8.2)
--- NOTE | 2018-03-19 01:28 | RADIOLOGY REPORT (SQ) ---
EXAM DESCRIPTION: XR CHEST 1 VIEW COMPLETED DATE/TME: 03/19/2018 00:29 CLINICAL HISTORY: SOB COMPARISON: 06/26/2016 FINDINGS: Single frontal view of the chest. The cardiomediastinal silhouette has normal size and contour. No consolidation, pneumothorax, or pleural effusion. No displaced rib fractures identified. Upper abdominal soft tissues are unremarkable. IMPRESSION: 1. No acute pulmonary process identified.
[2018-03-19 01:45] LABS: CREATINE KINASE MB 0.58 ng/mL (<4.55)
[2018-03-19 01:47] LABS: TROPONIN I < 0.012 ng/mL
[2018-03-19 05:19] VITALS: BP 126/82
--- NOTE | 2018-03-19 13:47 | EKG REPORT ---
SEVERITY:- OTHERWISE NORMAL ECG - SINUS TACHYCARDIA : Confirmed by: Anamika Mensah MD 19-Mar-2018 13:46:06
== END 2018-03-19 05:38 | disposition home or self-care (01) ==
LOC: ER 23:31
DX: R06.02 Shortness of breath (principal); R07.9 Chest pain, unspecified; J06.9 Acute upper respiratory infection, unspecified; Z86.718 Personal history of other venous thrombosis and embolism; Z79.01 Long term (current) use of anticoagulants
CPT/HCPCS: 36415; 71045; 80053; 82550; 82553; 84484; 85025; 93005; 93010; 99285

== ENCOUNTER 2018-04-11 17:18 | Emergency (ER) | payer OTHER, BC ==
--- NOTE | 2018-04-11 18:10 | ER Document Report ---
HPI - HPI Patient complains to provider of: Fall Onset: Yesterday Pain Level: 3 Context: 42-year-old female fell off the last rung of a ladder injuring her right knee, left shoulder and left fifth finger. She went to work today and came after work since it happened at work yesterday. Associated Symptoms: None Exacerbated by: Movement Relieved by: Denies Similar symptoms previously: No Recently seen / treated by doctor: No - ROS ROS below otherwise negative: Yes Systems Reviewed and Negative: Yes All other systems reviewed and negative - CONSTITUTIONAL Constitutional: DENIES: Fever, Chills - REPRODUCTIVE Reproductive: DENIES: : - MUSCULOSKELETAL Musculoskeletal: REPORTS: Extremity pain - R knee, L arm, L pinky Past Medical History - General Information source: Patient - Social History Smoking Status: Never Smoker Chew tobacco use (# tins/day): No Frequency of alcohol use: None Drug Abuse: None Family History: Reviewed & Not Pertinent, Other - Breast CA--aunt, cousin sister with DVT Patient has suicidal ideation: No Patient has homicidal ideation: No - Past Medical History Cardiac Medical History: Reports: Hx DVT - 2004, 2017, Hx Hypertension, Hx Pulmonary Embolism Renal/ Medical History: Reports: Hx Ovarian Cysts. Denies: Hx Peritoneal Dialysis Past Surgical History: Reports: Hx Breast Surgery - Cyst left breast, Hx Hysterectomy - Immunizations Hx Diphtheria, Pertussis, Tetanus Vaccination: Yes Vertical Provider Document - CONSTITUTIONAL Agree With Documented VS: Yes Exam Limitations: No Limitations - INFECTION CONTROL TRAVEL OUTSIDE OF THE [place] IN LAST 30 DAYS: No - NECK Neck: Supple - Nontender Notes: Mild tender left trapezius - RESPIRATORY Respiratory: Breath Sounds Normal, No Respiratory Distress - CARDIOVASCULAR Cardiovascular: Regular Rate, Regular Rhythm - BACK Back: Normal Inspection - MUSCULOSKELETAL/EXTREMETIES Musculoskeletal/Extremeties: MAEW, FROM, Non-Tender - Left fifth finger, right knee, No Edema. negative: Eccymosis - NEURO Level of Consciousness: Alert Motor/Sensory: No Motor Deficit, No Sensory Deficit - DERM Integumentary: No Rash Course - Re-evaluation Re-evalutation: 04/11/18 19:15 Patient states that she went to work today. The x-rays are negative per radiologist. I will treat with Tylenol and Motrin. - Vital Signs Vital signs: Temp Pulse Resp BP Pulse Ox 99.0 F 94 16 136/81 H 98 04/11/18 17:22 04/11/18 17:22 04/11/18 17:22 04/11/18 17:22 04/11/18 17:22 Discharge - Discharge Clinical Impression: contusion, Myalgia Fall Qualifiers: Encounter type: initial encounter Qualified Code(s): W19.XXXA - Unspecified fall, initial encounter Right knee sprain Qualifiers: Encounter type: initial encounter Involved ligament of knee: unspecified ligament Qualified Code(s): S83.91XA - Sprain of unspecified site of right knee , initial encounter Condition: Good Disposition: HOME, SELF-CARE Instructions: Acetaminophen, Anti-Inflammatory Medication ([facility]), Contusion ([facility] ), Myalagia (Muscle Pain) ([facility]), Sprain ([facility]) Additional Instructions: Warm compress to sore areas Motrin for inflammation, prescription given to you Tylenol for pain up to 4000 mg a day Follow-up with your doctor if the discomfort persists Copy of negative imaging reports given to you Prescriptions: Ibuprofen [Motrin 600 mg Tablet] 600 mg PO Q8HP PRN #30 tablet PRN Reason: Forms: Return to Work Referrals: ANDERSON ROBERSON, NON CATEGORICAL PRESCHOOL TEACHER [Primary Care Provider] - Follow up as needed
--- NOTE | 2018-04-11 19:06 | RADIOLOGY REPORT (SQ) ---
EXAM DESCRIPTION: FINGER LEFT COMPLETED DATE/TIME: 04/11/2018 6:45 pm REASON FOR STUDY: fell. left 5th COMPARISON: None. EXAM PARAMETERS: NUMBER OF VIEWS: Three views. TECHNIQUE: AP, lateral and oblique radiographic images acquired of the left hand. LIMITATIONS: None. FINDINGS: MINERALIZATION: Normal. BONES: No acute fracture or dislocation. No worrisome bone lesions. JOINTS: No effusion. SOFT TISSUES: No significant soft tissue swelling. No radiopaque foreign body. OTHER: No other significant finding. IMPRESSION: NO FRACTURE. TECHNICAL DOCUMENTATION: JOB ID: [id number] [place]-72 2010 [employer]- All Rights Reserved Reading location - IP/workstation name: [email or web address]
--- NOTE | 2018-04-11 19:07 | RADIOLOGY REPORT (SQ) ---
EXAM DESCRIPTION: SHOULDER LEFT 2 OR MORE VIEWS COMPLETED DATE/TIME: 04/11/2018 6:45 pm REASON FOR STUDY: fell, pain COMPARISON: None. NUMBER OF VIEWS: Three views. TECHNIQUE: Internal rotation, external rotation, and Y view images acquired of the left shoulder. LIMITATIONS: None. FINDINGS: MINERALIZATION: Normal. BONES: No acute fracture or dislocation. No worrisome bone lesions. JOINTS: No dislocation. VISUALIZED LUNGS AND RIBS: No pneumothorax. No rib fracture. SOFT TISSUES: No radiopaque foreign body. OTHER: No other significant finding. IMPRESSION: NO RADIOGRAPHIC EVIDENCE OF ACUTE INJURY. TECHNICAL DOCUMENTATION: JOB ID: [id number] [place]-72 2010 [employer]- All Rights Reserved Reading location - IP/workstation name: [email or web address]
--- NOTE | 2018-04-11 19:09 | RADIOLOGY REPORT (SQ) ---
EXAM DESCRIPTION: KNEE RIGHT 4 VIEWS COMPLETED DATE/TIME: 04/11/2018 6:45 pm REASON FOR STUDY: fell, pain COMPARISON: None. EXAM PARAMETERS: NUMBER OF VIEWS: Four views. TECHNIQUE: AP, lateral and both oblique radiographic images acquired of the right knee. LIMITATIONS: None. FINDINGS: MINERALIZATION: Normal. BONES: No acute fracture or dislocation. No worrisome bone lesions. JOINTS: Moderate effusion. SOFT TISSUES: No significant soft tissue swelling. No radiopaque foreign body. OTHER: No other significant finding. IMPRESSION: NO FRACTURE.Moderate effusion. TECHNICAL DOCUMENTATION: JOB ID: [id number] [place]-72 2010 [employer]- All Rights Reserved Reading location - IP/workstation name: [employer]
[2018-04-11 19:35] VITALS: BP 131/85
== END 2018-04-11 19:34 | disposition home or self-care (01) ==
LOC: ER 17:18
DX: S83.91XA Sprain of unspecified site of right knee, initial encounter (principal); S80.01XA Contusion of right knee, initial encounter; M79.10 Myalgia, unspecified site; W11.XXXA Fall on and from ladder, initial encounter; Y99.0 Civilian activity done for income or pay; Z86.718 Personal history of other venous thrombosis and embolism; I10 Essential (primary) hypertension; Z90.710 Acquired absence of both cervix and uterus
CPT/HCPCS: 99283

== ENCOUNTER 2018-06-03 19:41 | Emergency (ER) | payer BC, OTHER ==
--- NOTE | 2018-06-03 22:17 | ER Document Report ---
ED Headache - General Chief Complaint: Headache >24 hrs old Stated Complaint: HEADACHE Time Seen by Provider: 06/03/18 21:11 Mode of Arrival: Ambulatory Information source: Patient Notes: 42-year-old female presents to ED for complaint of headache since about 530. She states she has not taken anything for the headache. She does have elevated blood pressure. She is on losartan for her blood pressure. She states she does not have a history of migraines but has had a headache like this before and had elevated blood pressure at that time also. She states she has pain behind her right eye with pain to the right side of her face and cheek. She states she has had a cough. She states she has been taking her blood pressure medicine as ordered. She states she had some nausea when the headache first started but does not have nausea now. TRAVEL OUTSIDE OF THE [place] IN LAST 30 DAYS: No - HPI Patient complains to provider of: Headache Onset: This afternoon Onset was: Gradual Timing: Still present Quality of pain: Pressure Severity: Moderate Pain Level: 3 - Related Data Allergies/Adverse Reactions: No Known Allergies Allergy (Verified 06/03/18 19:41) Past Medical History - General Information source: Patient - Social History Smoking Status: Never Smoker Cigarette use (# per day): No Chew tobacco use (# tins/day): No Smoking Education Provided: No Frequency of alcohol use: None Drug Abuse: None Family History: Reviewed & Not Pertinent, Other - Breast CA--aunt, cousin sister with DVT Patient has suicidal ideation: No Patient has homicidal ideation: No - Past Medical History Cardiac Medical History: Reports: Hx DVT - 2017, Hx Hypertension, Hx Pulmonary Embolism Pulmonary Medical History: Reports: None EENT Medical History: Reports: None Neurological Medical History: Reports: None Endocrine Medical History: Reports: None Renal/ Medical History: Reports: Hx Ovarian Cysts, Other - Fibroid uterus Malignancy Medical History: Reports: None GI Medical History: Reports: None Musculoskeletal Medical History: Reports None Skin Medical History: Reports None Psychiatric Medical History: Reports: None Traumatic Medical History: Reports: None Infectious Medical History: Reports: None Past Surgical History: Reports: Hx Breast Surgery - Cyst left breast biopsy, Hx Hysterectomy - Immunizations Hx Diphtheria, Pertussis, Tetanus Vaccination: Yes Review of Systems - Review of Systems Constitutional: Recent illness EENT: Nose congestion, Sinus pressure - Right facial pressure Cardiovascular: Other - Blood pressure Respiratory: Cough Gastrointestinal: No symptoms reported Genitourinary: No symptoms reported Female Genitourinary: No symptoms reported Musculoskeletal: No symptoms reported Skin: No symptoms reported Hematologic/Lymphatic: No symptoms reported Neurological/Psychological: No symptoms reported -: Yes All other systems reviewed and negative Physical Exam - Vital signs Vitals: Temp Pulse Resp BP Pulse Ox 98.2 F 79 18 150/99 H 100 06/03/18 19:58 06/03/18 19:58 06/03/18 19:58 06/03/18 19:58 06/03/18 19:58 Interpretation: Normal - General General appearance: Appears well, Alert - HEENT Head: Normocephalic, Atraumatic Eyes: Normal Extraocular movements intact: Yes Eyelashes: Normal Pupils: PERRL -: bilateral: Pupils uneven Visual acuity- Right eye: 20/40 Visual acuity- Left eye: 20/40 Visual acuity- Both eyes: 20/40 Corrective lenses worn: Yes Right intraocular pressure: 16.95 Left intraocular pressure: 16.95 Ears: Normal External canal: Normal Tympanic membrane: Normal Sinus: Tenderness. No: Redness, Swelling Nasal: Purulent discharge, Swelling Mouth/Lips: Normal Mucous membranes: Normal Pharynx: Normal Neck: Normal - Respiratory Respiratory status: No respiratory distress Chest status: Nontender Breath sounds: Normal Chest palpation: Normal - Cardiovascular Rhythm: Regular Heart sounds: Normal auscultation Murmur: No - Abdominal Inspection: Normal Distension: No distension Bowel sounds: Normal Tenderness: Nontender Organomegaly: No organomegaly - Back Back: Normal, Nontender - Extremities General upper extremity: Normal inspection, Nontender, Normal color, Normal ROM , Normal temperature General lower extremity: Normal inspection, Nontender, Normal color, Normal ROM , Normal temperature, Normal weight bearing. 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 Eye pressures equal at 16.95 pupils equal and react to light. Patient is alert oriented speaking in full sentences walks with a even steady gait. Patient treated with Tylenol and Zofran for her right facial pressure. - Vital Signs Vital signs: Temp Pulse Resp BP Pulse Ox 98.2 F 73 18 147/90 H 98 06/03/18 19:58 06/03/18 23:25 06/03/18 23:25 06/03/18 23:25 06/03/18 23:25 Discharge - Discharge Clinical Impression: Headache Qualifiers: Headache type: unspecified Headache chronicity pattern: unspecified pattern Intractability: not intractable Qualified Code(s): R51 - Headache URI (upper respiratory infection) Qualifiers: URI type: unspecified URI Qualified Code(s): J06.9 - Acute upper respiratory infection, unspecified Condition: Stable Disposition: HOME, SELF-CARE Additional Instructions: UPPER RESPIRATORY ILLNESS: You have a viral infection of the respiratory passages -- a "cold." This common infection causes nasal congestion, drainage, and often sore throat and cough. It is highly contagious. The disease usually lasts about 10 to 14 days. There is no "cure" for the viral infection -- it must run its course. If there is a complication, such as bacterial infection in the nose, sinuses, middle ear, or bronchial tubes, antibiotics may be required. The antibiotics won't affect the virus. Drink plenty of fluids. A humidifier may help. An expectorant medication or decongestant may make you more comfortable. Use acetaminophen or ibuprofen for fever or aches. See the doctor if fever persists over two days, if there is any significant worsening of your symptoms, or if you simply fail to improve as expected. Headache The physician does not feel that the headache you are experiencing has a serious underlying cause. Most headaches are due to emotional stress, with resultant muscle tension (tension headache). Occasionally, headaches are secondary to changes in the blood vessels of the scalp (vascular headache and migraine headache). Sometimes, a headache is the first symptom of another developing illness, such as a viral infection. You have no evidence of stroke, bleeding, meningitis, or other serious cause of your headache. The treatment of headaches varies with the severity and cause of the pain. Not all headaches need pain shots. In fact, there is evidence that using narcotics for headaches may make them worse in the long run. The physician will determine the therapy that's in your best interest. If you develop a fever, if the headache is different from any you've previously experienced, or if the headache progressively worsens, then call your physician at once or go to the emergency room. COUGH-SUPPRESSANT & EXPECTORANT MEDICATION: You are to use a cough medication as needed for relief of symptoms. This medicine is a combination of an expectorant (to make the mucous thinner and more easily "coughed up") and a cough suppressant (to reduce the frequency of coughing). The cough-suppressant medicine is related to narcotics. You may experience mild nausea and sleepiness. Some patients who are very sensitive to narcotics may have stomach pain from this medicine. Taking the medicine with food reduces these side effects. Do not drive or work with machinery until you know how this medicine affects you. The expectorant should have no side effects. Iodine-containing expectorants (such as organidin) should not be taken by persons with active thyroid disease unless approved by your doctor. Call the doctor if you develop shortness of breath, hives, rash, itching, lightheadedness, or severe nausea and vomiting. USE OF ACETAMINOPHEN (Tylenol): Acetaminophen may be taken for pain relief or fever control. It's much safer than aspirin, offering a wider range of "safe" dosages. It is safe during . Some brand names are Tylenol, Panadol, Datril, Anacin 3, Tempra, and Liquiprin. Acetaminophen can be repeated every four hours. The following are maximum recommended dosages: >89 pounds or adults 650 mg to 900 mg Acetaminophen can be repeated every four hours. Maximum dose not to exceed 4000 mg a day. Antinausea Medication You have been given a medication to suppress nausea and vomiting. This type of medication can be given as a shot, pill, or suppository. It will usually last for many hours. Pills and shots usually last six to eight hours, suppositories last about 12 hours. For the typical illness, only one or two doses of the medication may be necessary. Mild lightheadedness may occur. This type of medicine can cause drowsiness. Do not drive or operate dangerous machinery while under its influence. Do not mix with alcohol. See your doctor at once if you have muscle spasms or tightness, or uncontrollable motions (particularly of the neck, mouth, or jaw). Persistent vomiting or severe lightheadedness should also be evaluated by the physician. FOLLOW-UP CARE: If you have been referred to a physician for follow-up care, call the physician s office for an appointment as you were instructed or within the next two days. If you experience worsening or a significant change in your symptoms, notify the physician immediately or return to the Emergency Department at any time for re-evaluation. Prescriptions: Prochlorperazine Maleate [Compazine 10 mg Tablet] 10 mg PO Q6HP PRN #10 tablet PRN Reason: Forms: Elevated Blood Pressure Referrals: ANDERSON ROBERSON [employer]RIX PLATER [Primary Care Provider] - Follow up tomorrow
[2018-06-03] MEDS ORDERED: ACETAMINOPHEN 325 MG TABLET PO ONE (22:31)
[2018-06-03] MEDS ORDERED: ONDANSETRON 4 MG TAB.RAPDIS PO ONE (22:31)
[2018-06-03] MEDS ORDERED: ONDANSETRON ODT 4 MG TAB (6 TAB/ER DISP) PO PRN (23:13)
[2018-06-03 23:27] VITALS: BP 147/90
== END 2018-06-03 23:25 | disposition home or self-care (01) ==
LOC: ER 19:41
DX: R51 Headache (principal); J06.9 Acute upper respiratory infection, unspecified; I10 Essential (primary) hypertension; R09.81 Nasal congestion; R05 Cough; J34.89 Other specified disorders of nose and nasal sinuses; Z79.899 Other long term (current) drug therapy
CPT/HCPCS: 99284; S0119

== ENCOUNTER 2018-08-28 10:08 | Emergency (ER) | payer OTHER, BC ==
--- NOTE | 2018-08-28 10:54 | ER Document Report ---
HPI - HPI Time Seen by Provider: 08/28/18 10:38 Pain Level: 2 Context: Patient is a 43-year-old female who presents the emergency department with a chief complaint of left knee pain. She hit her knee on a shelving unit at work yesterday. The area that hurts is the left anterior lateral knee. She states that she is noted some swelling to the area, but the swelling has improved. She has history of a fracture to the same knee in June of last year. History of a DVT in 2004 and 2017, is currently on Xarelto. She also has a history of hypertension and takes losartan. Denies inability to walk. She denies any weakness, loss of sensation, or any other symptoms. - CONSTITUTIONAL Constitutional: DENIES: Fever, Chills - NEURO Neurology: DENIES: Headache - CARDIOVASCULAR Cardiovascular: DENIES: Chest pain - RESPIRATORY Respiratory: DENIES: Trouble Breathing - GASTROINTESTINAL Gastrointestinal: DENIES: Abdominal Pain - REPRODUCTIVE Reproductive: DENIES: : - MUSCULOSKELETAL Musculoskeletal: REPORTS: Extremity pain - left knee - DERM Skin Color: Normal Skin Problems: None Past Medical History - General Information source: Patient - Social History Smoking Status: Never Smoker Chew tobacco use (# tins/day): No Frequency of alcohol use: None Drug Abuse: None Family History: Reviewed & Not Pertinent, Other - Breast CA--aunt, cousin sister with DVT Patient has suicidal ideation: No Patient has homicidal ideation: No - Past Medical History Cardiac Medical History: Reports: Hx DVT - 2017, Hx Hypertension, Hx Pulmonary Embolism Renal/ Medical History: Reports: Hx Ovarian Cysts. Denies: Hx Peritoneal Dialysis Past Surgical History: Reports: Hx Breast Surgery - Cyst left breast biopsy, Hx Hysterectomy - Immunizations Hx Diphtheria, Pertussis, Tetanus Vaccination: Yes Vertical Provider Document - CONSTITUTIONAL Agree With Documented VS: Yes Exam Limitations: No Limitations - INFECTION CONTROL TRAVEL OUTSIDE OF THE [place] IN LAST 30 DAYS: No - HEENT HEENT: Atraumatic, Normocephalic - NECK Neck: Normal Inspection - RESPIRATORY Respiratory: No Respiratory Distress - CARDIOVASCULAR Cardiovascular: Regular Rate, Regular Rhythm - MUSCULOSKELETAL/EXTREMETIES Musculoskeletal/Extremeties: FROM, Tender - Anterior left lateral knee, Edema - Very mild to left anterior lateral knee - NEURO Level of Consciousness: Awake, Alert, Appropriate Motor/Sensory: No Motor Deficit, No Sensory Deficit - DERM Integumentary: Warm, Dry Course - Re-evaluation Re-evalutation: 08/28/18 10:56 Patient will be sent to have x-rays done of her left knee. 08/28/18 11:34 The patient's x-ray is negative for any acute fracture. She will be instructed on continuing rest, ice, compression, and elevation to help with her symptoms. She will follow-up with her primary care provider in regards to this visit. Verbal discharge instructions were given to the patient. They verbalized understanding. They are stable for discharge. - Vital Signs Vital signs: Temp Pulse Resp BP Pulse Ox 99.0 F 77 16 126/76 H 100 08/28/18 10:16 08/28/18 10:16 08/28/18 10:16 08/28/18 10:16 08/28/18 10:16 Discharge - Discharge Clinical Impression: Left knee pain Qualifiers: Chronicity: acute Qualified Code(s): M25.562 - Pain in left knee Condition: Stable Disposition: HOME, SELF-CARE Additional Instructions: You were seen in the emergency department for left knee pain. Thankfully there is no fracture to your left knee. Please continue resting your knee, elevating your knee, icing the area (20 minutes on, 20 minutes off), and using knee brace to provide compression to the area. You can take Tylenol 1000 mg every 6 hours as needed for your pain. Please follow-up with your primary care provider in regards to this visit. If you are unable to walk, have worsening symptoms, or have any symptoms that are worrisome to you, please return to the emergency department. Forms: Return to Work Referrals: ANDERSON ROBERSON NP [Primary Care Provider] - 08/31/18
--- NOTE | 2018-08-28 11:31 | RADIOLOGY REPORT (SQ) ---
EXAM DESCRIPTION: KNEE LEFT 4 VIEW COMPLETED DATE/TIME: 08/28/2018 11:19 am REASON FOR STUDY: knee injury COMPARISON: None. NUMBER OF VIEWS: Four views. TECHNIQUE: AP, lateral, and both oblique radiographic images acquired of the left knee. LIMITATIONS: None. FINDINGS: MINERALIZATION: Normal. BONES: No acute fracture or dislocation. Non aggressive sclerotic homogeneous lesion in the proximal tibia. JOINT: No effusion. SOFT TISSUES: No soft tissue swelling. No radio-opaque foreign body. OTHER: No other significant finding. IMPRESSION: 1. NEGATIVE STUDY OF THE LEFT KNEE. TECHNICAL DOCUMENTATION: JOB ID: [id number] [employer]- All Rights Reserved Reading location - IP/workstation name: [email or web address]
[2018-08-28 11:54] VITALS: BP 119/62
== END 2018-08-28 11:54 | disposition home or self-care (01) ==
LOC: ER 10:08
DX: M25.562 Pain in left knee (principal); M79.89 Other specified soft tissue disorders; Z86.718 Personal history of other venous thrombosis and embolism; Z79.01 Long term (current) use of anticoagulants; I10 Essential (primary) hypertension; Z79.899 Other long term (current) drug therapy
CPT/HCPCS: 99283

== ENCOUNTER → 2019-06-15 | Outpatient (CLI) | payer BC | LOC: WI 10:21 | PROVIDERS: ATTEND Registered Nurse | DX: Z12.31 Encounter for screening mammogram for malignant neoplasm of breast (principal) | CPT/HCPCS: 77067 ==

== ENCOUNTER 2019-12-30 02:54 | Emergency (ER) | payer BC ==
--- NOTE | 2019-12-30 08:16 | RADIOLOGY REPORT (SQ) ---
EXAM DESCRIPTION: SHOULDER RIGHT 2 OR MORE VIEWS IMAGES COMPLETED DATE/TIME: 12/30/2019 7:59 am REASON FOR STUDY: unable to have full ROM COMPARISON: None. NUMBER OF VIEWS: Three views. TECHNIQUE: Internal rotation, external rotation, and Y view images acquired of the right shoulder. LIMITATIONS: None. FINDINGS: MINERALIZATION: Normal. BONES: No acute fracture. No worrisome bone lesions. JOINTS: No dislocation. VISUALIZED LUNGS AND RIBS: No pneumothorax. No rib fracture. SOFT TISSUES: Smoothly marginated calcifications seen in the region of the rotator cuff likely repres ent calcific tendinopathy of the infraspinatus. OTHER: No other significant finding. IMPRESSION: Likely calcific tendinopathy of the infraspinatus. No acute findings. TECHNICAL DOCUMENTATION: JOB ID: [id number] [employer]- All Rights Reserved Reading location - IP/workstation name: [email or web address]
[2019-12-30] MEDS ORDERED: OXYCODONE-ACETAMINOPHEN 5-325 MG TABLET PO ONE (08:42)
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
--- NOTE | 2019-12-30 09:25 | RADIOLOGY REPORT (SQ) ---
EXAM DESCRIPTION: CERV SP 4 OR 5 VIEWS IMAGES COMPLETED DATE/TIME: 12/30/2019 9:06 am REASON FOR STUDY: radicular pain RUE neck pain COMPARISON: None. NUMBER OF VIEWS: Five views. TECHNIQUE: AP, lateral, obliques and odontoid radiographic images acquired of the cervical spine. LIMITATIONS: None. FINDINGS: MINERALIZATION: Normal. ALIGNMENT: Anatomic. VERTEBRAE: Vertebral bodies of normal height. DISCS: Marginal osteophytes are seen at the C4/5 level. Intervertebral disc heights appear largely p reserved. FORAMINA: No osteophytes or foraminal narrowing. LATERAL AND POSTERIOR ELEMENTS: Facets, lateral masses and spinous processes without significant find ings. HARDWARE: None in the spine. SOFT TISSUES: No masses or calcifications. Lung apices clear. OTHER: No other significant finding. IMPRESSION: Relatively mild spondylotic changes at the C4/5 level. The neural foramina remain widel y patent. TECHNICAL DOCUMENTATION: JOB ID: [id number] 2010 [employer]- All Rights Reserved Reading location - IP/workstation name: [email or web address]
[2019-12-30 10:12] VITALS: BP 117/80
== END 2019-12-30 10:12 | disposition home or self-care (01) ==
LOC: ER 02:54
DX: M75.31 Calcific tendinitis of right shoulder (principal); M47.12 Other spondylosis with myelopathy, cervical region; Z79.01 Long term (current) use of anticoagulants; Z79.899 Other long term (current) drug therapy; Z86.718 Personal history of other venous thrombosis and embolism
CPT/HCPCS: 72050; 99283

== ENCOUNTER → 2020-06-21 | Outpatient (CLI) | payer BC ==
--- NOTE | 2020-06-21 10:21 | WOMENS IMAGING REPORT ---
EXAM DESCRIPTION: BILAT SCREENING MAMMO W/CAD IMAGES COMPLETED DATE/TIME: 06/21/2020 7:20 am REASON FOR STUDY: Z12.31 ENCNTR SCREEN MAMMOGRAM FOR MALIGNANT NEOPLASM OF BREAST Z12.31 ENCNTR SCR EEN MAMMOGRAM FOR MALIGNANT NEOPLASM OF DEZ COMPARISON: 06/15/2019. EXAM PARAMETERS: Standard craniocaudal and mediolateral oblique views of each breast recorded using digital acquisition. Read with the assistance of CAD. .[facility] - [email or web address] Eligibility Manager Version 9.2 LIMITATIONS: None. FINDINGS: No suspicious masses, suspicious calcifications or architectural distortion. No areas of c oncern. IMPRESSION: NEGATIVE MAMMOGRAM. BIRADS 1 BREAST DENSITY: c. The breasts are heterogeneously dense, which may obscure small masses. BIRAD: ASSESSMENT: 1 NEGATIVE RECOMMENDATION: ROUTINE SCREENING COMMENT: The patient has been notified of the results by letter per MQSA requirements. Additional no tification policies are in place for contacting patient with suspicious or incomplete findings. Quality ID #[id number]: The [employer] recommends an annual screening mammogram for women aged 40 years or over. This facility utilizes a reminder system to ensure that all patients receive reminder letters, and/or direct phone calls for appointments. This includes reminders for routine scr eening mammograms, diagnostic mammograms, or other Breast Imaging Interventions when appropriate. Th is patient will be placed in the appropriate reminder system. TECHNICAL DOCUMENTATION: FINDING NUMBER: (1) ASSESSMENT: (1) JOB ID: [id number] 2010 [employer]- All Rights Reserved Reading location - IP/workstation name: [email or web address]
== END ==
LOC: WI 06:59
PROVIDERS: ATTEND Registered Nurse
DX: Z12.31 Encounter for screening mammogram for malignant neoplasm of breast (principal)
CPT/HCPCS: 77067